=== PATIENT | female | born 1940 | race Caucasian/White ===

== ENCOUNTER → 2016-09-29 | Outpatient (CLI) | payer MEDICARE ==
--- NOTE | 2016-09-30 11:08 | MM ---
Reason for exam: screening (asymptomatic). Last mammogram was performed 1 year ago. History: Patient is postmenopausal and has history of other cancer at age 52. Took estrogen for 8 years. Took progesterone for 8 years. Physical Findings: A clinical breast exam by your physician is recommended on an annual basis and results should be correlated with mammographic findings. MG 3D Screening Mammo W/Cad Bilateral CC and MLO view(s) were taken. Prior study comparison: September 25, 2015, bilateral MG 3d screening mammo w/cad. September 21, 2014, bilateral MG screening mammo w CAD. September 19, 2013, bilateral digital screening mammo w/CAD. The breast tissue is heterogeneously dense. This may lower the sensitivity of mammography. Finding: There are typically benign round calcifications in both breasts. There is no discrete abnormality. ASSESSMENT: Benign, BI-RAD 2 RECOMMENDATION: Routine screening mammogram of both breasts in 1 year.
== END | disposition home or self-care (01) ==
LOC: RADMAMWWP 10:23
PROVIDERS: ATTEND Internal Medicine
DX: Z12.31 Encounter for screening mammogram for malignant neoplasm of breast (principal)
CPT/HCPCS: 77063; G0202

== ENCOUNTER 2017-01-06 06:49 | Emergency (ER) | payer MEDICARE ==
[2017-01-06 06:58] VITALS: TEMP 98.1
[2017-01-06] MEDS ORDERED: KETOROLAC 60 MG/2 ML VIAL IM STA (07:26)
--- NOTE | 2017-01-06 07:52 | XR ---
EXAMINATION TYPE: XR pelvis AP view DATE OF EXAM: 01/06/2017 COMPARISON: NONE HISTORY: Pain TECHNIQUE: Single view FINDINGS: Pelvic ring is intact. There is some sclerosis and spurring at the right acetabulum and fem oral head. Sacroiliac joints appear normal. IMPRESSION: No fracture. 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
--- NOTE | 2017-01-06 08:22 | ED ---
General Adult HPI - General Chief complaint: Extremity Injury, Lower Stated complaint: left side /abd pain Time Seen by Provider: 01/06/17 07:00 Source: patient, RN notes reviewed Mode of arrival: wheelchair Limitations: no limitations - History of Present Illness Initial comments: This is a 76-year-old female presents emergency Department complaining of pain in the right hip area. Patient states she fell a few days ago when she was walking her dog but it wasn't until yesterday that she notices significant pain. Patient states it radiates down into her groin region on the left. Patient states this morning it was so bad she was almost in tears trying to walk. Patient admits that currently now that she's been moving around a little the pain is gone away quite a bit in his difficulty finding where the pain is per patient denies any swelling. Patient denies any sites of bleeding or bruising. Patient denies any recent fever chills or cough. Patient denies abdominal pain. Patient denies any dysuria hematuria urinary frequency. - Related Data Home Medications Medication Instructions Recorded Confirmed Alendronate Sodium [Fosamax] 70 mg PO FR 01/06/17 01/06/17 Ascorbic Acid [Vitamin C] 1,000 mg PO DAILY 01/06/17 01/06/17 Aspirin 81 mg PO DAILY 01/06/17 01/06/17 Calcium Carbonate/Vitamin D3 1 tab PO DAILY 01/06/17 01/06/17 [Calcium 500-Vit D3 600 Tablet] Cholecalciferol [Vitamin D3] 5,000 unit PO DAILY 01/06/17 01/06/17 Flaxseed Oil [[place]-3 Flaxseed Oil] 1,000 mg PO TID 01/06/17 01/06/17 Fluticasone Nasal [place] [Flonase 1 spray EA NOSTRIL BID 01/06/17 01/06/17 Nasal [place]] Glucosamine-Chondr 500-400Mg 1 tab PO DAILY 01/06/17 01/06/17 Loratadine [Claritin] 10 mg PO DAILY 01/06/17 01/06/17 Multivitamins, Thera [Multivitamin 1 tab PO DAILY 01/06/17 01/06/17 (formulary)] Olopatadine HCl [Patanase] 1 spray NASAL BID 01/06/17 01/06/17 Propranolol HCl [Inderal Xl] 80 mg PO DAILY 01/06/17 01/06/17 Ranitidine HCl [Zantac] 150 mg PO HS 01/06/17 01/06/17 methylPREDNISolone [Medrol] 12 mg PO BID 01/06/17 01/06/17 Allergies Allergy/AdvReac Type Severity Reaction Status Date / Time Sulfa (Sulfonamide Allergy ITCHING, Verified 01/06/17 08:11 Antibiotics) SOB, Review of Systems ROS Statement: Those systems with pertinent positive or pertinent negative responses have been documented in the HPI. ROS Other: All systems not noted in ROS Statement are negative. Past Medical History Past Medical History: Cancer, GERD/Reflux Additional Past Medical History / Comment(s): SKIN CA ON NOSE 1998. SINUS PROBLEMS. HEADACHES History of Any Multi-Drug Resistant Organisms: None Reported Past Surgical History: Adenoidectomy, Tonsillectomy, Tubal Ligation Additional Past Surgical History / Comment(s): D & C. COLONOSCOPY Past Anesthesia/Blood Transfusion Reactions: No Reported Reaction Past Psychological History: No Psychological Hx Reported Smoking Status: Never smoker Past Alcohol Use History: Rare Past Drug Use History: None Reported - Past Family History Father Family Medical History: Cancer General Exam - General Exam Comments Initial Comments: GENERAL Patient is well-developed and well-nourished. Patient is in mild distress. EYES Patient's pupils are equal and round. Extraocular motion is intact SKIN Unremarkable NEURO The patient is alert and oriented 3 PYSCH Patient has normal interpersonal interactions. MUSCULOSKELETAL Patient has full range of motion of the left leg and hip area there is no signs of swelling was no signs of bruising orof injury. Limitations: no limitations Course Vital Signs 01/06/17 06:56 Temperature 98.1 F Pulse Rate 59 L Respiratory 16 Rate Blood Pressure 127/69 O2 Sat by Pulse 99 Oximetry Medical Decision Making - Medical Decision Making Pelvic x-ray shows no acute fracture. I spoke with the patient after the x-ray and she indicated that she feels considerably better and then she can't find the pain with movement at this point in time. And states she will return if it returns Disposition Clinical Impression: Muscle strain Disposition: HOME SELF-CARE Condition: Good Instructions: Muscle Strain (ED) Referrals: Sophia Judge MD [Primary Care Provider] - 1-2 days Time of Disposition: 08:22
[2017-01-06 08:26] VITALS: BP 125/65; PULSE 62; RESP 18
== END 2017-01-06 08:26 | disposition home or self-care (01) ==
LOC: EC 06:49
DX: S76.011A Strain of muscle, fascia and tendon of right hip, initial encounter (principal); K21.9 Gastro-esophageal reflux disease without esophagitis; Z85.828 Personal history of other malignant neoplasm of skin; Z79.899 Other long term (current) drug therapy; Z79.52 Long term (current) use of systemic steroids; Z79.82 Long term (current) use of aspirin; Z88.2 Allergy status to sulfonamides; W18.30XA Fall on same level, unspecified, initial encounter; Y93.K1 Activity, walking an animal
CPT/HCPCS: 72170; 99283; 96372; J1885

== ENCOUNTER → 2017-10-12 | Outpatient (CLI) | payer MEDICARE ==
--- NOTE | 2017-10-14 09:11 | MM ---
Reason for exam: screening (asymptomatic). Last mammogram was performed 1 year ago. History: Patient is postmenopausal and has history of other cancer at age 52. Took estrogen for 8 years. Took progesterone for 8 years. Physical Findings: A clinical breast exam by your physician is recommended on an annual basis and results should be correlated with mammographic findings. MG 3D Screening Mammo W/Cad Bilateral CC and MLO view(s) were taken. Prior study comparison: September 29, 2016, bilateral MG 3d screening mammo w/cad. September 25, 2015, bilateral MG 3d screening mammo w/cad. The breast tissue is heterogeneously dense. This may lower the sensitivity of mammography. No significant changes when compared with prior studies. ASSESSMENT: Negative, BI-RAD 1 RECOMMENDATION: Routine screening mammogram of both breasts in 1 year.
== END | disposition home or self-care (01) ==
LOC: RADMAMWWP 09:19
PROVIDERS: ATTEND Internal Medicine
DX: Z12.31 Encounter for screening mammogram for malignant neoplasm of breast (principal)
CPT/HCPCS: 77063; 77067

== ENCOUNTER → 2018-03-26 | Outpatient (CLI) | payer MEDICARE ==
--- NOTE | 2018-03-26 15:52 | US ---
EXAMINATION TYPE: US thyroid st tissue head/neck DATE OF EXAM: 03/26/2018 COMPARISON: NONE CLINICAL HISTORY: E04.1 Thyroid nodule. GLAND SIZE: Right Lobe: 4.4 x 1.4 x 2.0 cm Overall Parenchyma: homogenous Left Lobe: 4.2 x 1.2 x 1.0 cm Overall Parenchyma: homogeneous Isthmus Thickness: 0.3 cm NODULES RIGHT: # of nodules measured on right: 3 largest of multiple 1. 1.5 X 1.2 x 1.0 cm hypoechoic cystic nodule at the mid pole with well-defined margins. This nod ule is taller than wide and shows no intranodular vascularity. 2. 0.8 X 0.5 x 0.3 cm hypoechoic cystic nodule at the mid medial pole with well-defined margins; int errupted peripheral calcification. This nodule is wider than tall and shows no intranodular vascular ity. 3. 1.0 X 0.7 x 0.6 cm hypoechoic mixed nodule at the lower pole with poorly-defined margins. This nodule is wider than tall and shows intranodular vascularity. LEFT: # of nodules measured on left: 1 ISTHMUS: # of nodules measured in the isthmus: 0 Bilateral neck scanned: no evidence of lymphadenopathy. Thyroid gland is overall normal in size with some scattered small nodules. There is a dominant 1.5 cm cystic nodule noted at pole level. IMPRESSION: As above. Correlation with old outside thyroid ultrasound advised to assess for interval change.
== END ==
LOC: RADUSWWP 14:16
PROVIDERS: ATTEND Internal Medicine
DX: E04.1 Nontoxic single thyroid nodule (principal)
CPT/HCPCS: 76536

== ENCOUNTER → 2018-10-13 | Outpatient (CLI) | payer MEDICARE ==
--- NOTE | 2018-10-14 11:35 | MM ---
Reason for exam: screening (asymptomatic). Last mammogram was performed 1 year ago. History: Patient is postmenopausal and has history of other cancer at age 52. Took estrogen for 8 years. Took progesterone for 8 years. Physical Findings: A clinical breast exam by your physician is recommended on an annual basis and results should be correlated with mammographic findings. MG 3D Screening Mammo W/Cad Bilateral CC and MLO view(s) were taken. Prior study comparison: October 12, 2017, bilateral MG 3d screening mammo w/cad. September 29, 2016, bilateral MG 3d screening mammo w/cad. The breast tissue is heterogeneously dense. This may lower the sensitivity of mammography. Finding #1: There is a 10 mm equal density (isodense), obscured oval mass in the right breast. Finding #2: There are typically benign calcifications in both breasts. ASSESSMENT: Incomplete: need additional imaging evaluation, BI-RAD 0 RECOMMENDATION: Special view mammogram of the right breast. If lesion persists on supplemental views, image directed ultrasound is recommended. [facility] will attempt to contact patient to return for supplemental views and ultrasound if indicated.
== END | disposition home or self-care (01) ==
LOC: RADMAMWWP 09:05
PROVIDERS: ATTEND Internal Medicine
DX: Z12.31 Encounter for screening mammogram for malignant neoplasm of breast (principal)
CPT/HCPCS: 77063; 77067

== ENCOUNTER → 2018-10-15 | Outpatient (CLI) | payer MEDICARE ==
--- NOTE | 2018-10-15 14:37 | MM ---
Reason for exam: additional evaluation requested from abnormal screening. Last mammogram was performed less than 1 month ago. History: Patient is postmenopausal and has history of other cancer at age 52. Took hormonal contraceptives for 24 years beginning at age 26. Took estrogen for 8 years. Took progesterone for 8 years. Physical Findings: Nurse did not find any significant physical abnormalities on exam. MG 3D Work Up W/Cad RT Spot compression CC, MLO, and LM view(s) were taken of the right breast. Prior study comparison: October 13, 2018, bilateral MG 3d screening mammo w/cad. October 12, 2017, bilateral MG 3d screening mammo w/cad. There is no discrete abnormality including area of concern. These results were verbally communicated with the patient and result sheet given to the patient on 10/15/18. ASSESSMENT: Negative, BI-RAD 1 RECOMMENDATION: Return to routine screening mammogram schedule for both breasts.
== END ==
LOC: RADMAMWWP 13:45
PROVIDERS: ATTEND Internal Medicine
DX: R92.8 Other abnormal and inconclusive findings on diagnostic imaging of breast (principal)
CPT/HCPCS: 77065; G0279; 77061

== ENCOUNTER → 2019-05-09 | Outpatient (CLI) | payer MEDICARE ==
--- NOTE | 2019-05-09 09:26 | BD ---
EXAMINATION TYPE: Axial Bone Density DATE OF EXAM: 05/09/2019 COMPARISON: 05/01/2014 CLINICAL HISTORY: C 73, Z 90.09 Height: 63.5 IN Weight: 128 LBS RISK FACTORS HISTORY OF: Family History of Osteoporosis: YES MOTHER Active: YES Diet low in dairy products/other sources of calcium: YES Postmenopausal woman: AGE 47 Take estrogen and/or progesterone medications: NOT NOW How long: TOOK CONTROL FOR 15 YEARS + MEDICATIONS: Osteoporosis Medications: NOT NOW Which medication: Fosamax How Long: TOOK FOR 15 YEARS PREVIOUSLY Additional Medications: CALCIUM, VIT D, INNOPRAN, MULTI VIT, VIT C, FLAX SEED OIL, ZINC, BIOTIN, GLUC OSAMINE CHONDROITIN, FLONASE, XARELTO, NEXIUM, CLARITIN, TUMERIC EXAM MEASUREMENTS: Bone mineral densitometry was performed using the [employer] System. Bone mineral density as measured about the Lumbar spine is: ----- L1-L4(G/cm2): 1.085 T Score Values are as follows: ----- L2: 0.0 ----- L3: -1.3 ----- L4: -1.5 ----- L1-L4: -0.8 Bone mineral density has: Increased 2.6% since study of: 05/01/2014 Bone mineral density about the R hip (g/cm2): 0.754 Bone mineral density about the L hip (g/cm2): 0.835 T Score values are as follows: -----R Neck: -2.0 -----L Neck: -1.5 -----R Total: -2.3 -----L Total: -1.4 Bone mineral density has: Decreased -0.1% since study of: 05/01/2014 IMPRESSION: Osteopenia (T Score between -2.5 and -1). There is slightly increased risk of fracture and the patient may be considered for treatment. Re-Screen 2-5 years. NOTE: T-SCORE=SD OF THE YOUNG ADULT MEAN.
[2019-05-09 11:12] LABS: Ionized Calcium 4.9 mg/dL (4.5-5.3)
== END | disposition home or self-care (01) ==
LOC: RADBDWWP 08:45
PROVIDERS: ATTEND Internal Medicine
DX: M85.80 Other specified disorders of bone density and structure, unspecified site (principal); C73 Malignant neoplasm of thyroid gland; Z90.09 Acquired absence of other part of head and neck
CPT/HCPCS: 77080; 82330; 83970; 84443

== ENCOUNTER 2019-06-21 10:07 | Emergency (ER) | payer MEDICARE ==
[2019-06-21 10:19] VITALS: TEMP 98.6
--- NOTE | 2019-06-21 10:35 | ED ---
Fall HPI - General Chief Complaint: Fall Stated Complaint: Fall, L knee pain Time Seen by Provider: 06/21/19 10:20 Source: EMS Mode of arrival: EMS - History of Present Illness Initial Comments: Patient is 79-year-old female presenting to emergency Department with a chief complaint of a fall. Patient brought to the ED via EMS. Patient given fentanyl for pain control in the ride here. She states she was walking her dog when she tripped over a frozen woodpile causing her to fall forward and rolling over to her left side. She states that she Dreger body across the field until she was noticed by her son who called the ambulance. She reports an injury to the left knee and thinks there is no head trauma. She reports limited range of motion with knee flexion in the left knee. At this time she denies any pain at rest. No trauma to the elbows. Patient is on blood thinners. Tetanus up-to-date. - Related Data Home Medications Medication Instructions Recorded Confirmed Alendronate Sodium [Fosamax] 70 mg PO FR 01/06/17 01/06/17 Ascorbic Acid [Vitamin C] 1,000 mg PO DAILY 01/06/17 01/06/17 Aspirin 81 mg PO DAILY 01/06/17 01/06/17 Calcium Carbonate/Vitamin D3 1 tab PO DAILY 01/06/17 01/06/17 [Calcium 500-Vit D3 600 Tablet] Cholecalciferol [Vitamin D3] 5,000 unit PO DAILY 01/06/17 01/06/17 Flaxseed Oil [[place]-3 Flaxseed Oil] 1,000 mg PO TID 01/06/17 01/06/17 Fluticasone Nasal [place] [Flonase 1 spray EA NOSTRIL BID 01/06/17 01/06/17 Nasal [place]] Glucosamine-Chondr 500-400Mg 1 tab PO DAILY 01/06/17 01/06/17 Loratadine [Claritin] 10 mg PO DAILY 01/06/17 01/06/17 Multivitamins, Thera [Multivitamin 1 tab PO DAILY 01/06/17 01/06/17 (formulary)] Olopatadine HCl [Patanase] 1 spray NASAL BID 01/06/17 01/06/17 Propranolol HCl [Inderal Xl] 80 mg PO DAILY 01/06/17 01/06/17 Ranitidine HCl [Zantac] 150 mg PO HS 01/06/17 01/06/17 methylPREDNISolone [Medrol] 12 mg PO BID 01/06/17 01/06/17 Allergies Allergy/AdvReac Type Severity Reaction Status Date / Time Sulfa (Sulfonamide Allergy ITCHING, Verified 01/06/17 08:11 Antibiotics) SOB, Review of Systems ROS Statement: Those systems with pertinent positive or pertinent negative responses have been documented in the HPI. ROS Other: All systems not noted in ROS Statement are negative. Past Medical History Past Medical History: Atrial Fibrillation, Cancer, GERD/Reflux Additional Past Medical History / Comment(s): SKIN CA ON NOSE 1998. SINUS PROBLEMS. HEADACHES History of Any Multi-Drug Resistant Organisms: None Reported Past Surgical History: Adenoidectomy, Tonsillectomy, Tubal Ligation Additional Past Surgical History / Comment(s): D & C. COLONOSCOPY Past Anesthesia/Blood Transfusion Reactions: No Reported Reaction Past Psychological History: No Psychological Hx Reported Smoking Status: Never smoker Past Alcohol Use History: Rare Past Drug Use History: None Reported - Past Family History Father Family Medical History: Cancer General Exam Limitations: physical limitation General appearance: alert, in no apparent distress Head exam: Present: atraumatic, normocephalic, normal inspection. Absent: other (Negative Augustine sign, negative hemotympanum, negative raccoon eyes.) Eye exam: Present: normal appearance, PERRL, EOMI Pupils: Present: normal accommodation ENT exam: Present: normal exam, normal oropharynx, mucous membranes moist, TM's normal bilaterally, normal external ear exam Neck exam: Present: normal inspection, full ROM Respiratory exam: Present: normal lung sounds bilaterally Cardiovascular Exam: Present: regular rate, normal rhythm, normal heart sounds GI/Abdominal exam: Present: soft, tenderness. Absent: distended Extremities exam: Present: tenderness (Tenderness along the medial aspect of the left knee. Negative anterior drawer.), normal capillary refill, joint swelling (Left knee), other (+2 dorsalis pedis and posterior tibialis bilaterally. Patient neurovascularly intact.). Absent: normal inspection (Abrasion the left knee. Mild swelling along the medial aspect of the knee.), full ROM (Limited range of motion her left knee due to pain), pedal edema, calf tenderness Back exam: Present: normal inspection, full ROM Neurological exam: Present: alert, oriented X3 Psychiatric exam: Present: normal affect, normal mood Skin exam: Present: warm, dry, intact, normal color Course Vital Signs 06/21/19 10:15 Temperature 98.6 F Pulse Rate 56 L Respiratory 19 Rate Blood Pressure 133/73 O2 Sat by Pulse 97 Oximetry Medical Decision Making - Medical Decision Making Patient is 79-year-old female presenting to emergency Department with a chief complaint of a fall. On exam trauma noted. Patient on blood thinners. CT brain performed and is negative. Patient has an abrasion to left knee with some mild swelling. Pain along the medial aspect of the knee. Minor bony deformity noted Along the patella. X-ray shows a patellar fracture with a 3.3 cm diastasis. Possible patella tendon rupture. Patient was given fentanyl in the ambulance. On initial evaluation patient declined analgesia. Knee immobilizer applied . Abrasion cleaned and dressed accordingly. patient given Tylenol 3 starter pack advised to follow-up with orthopedics. Should return parameters were thoroughly discussed with patient is understanding and agreeable. Case discussed with physician. Disposition Clinical Impression: Patellar sleeve fracture of left knee, Fall Disposition: HOME SELF-CARE Condition: Stable Instructions (If sedation given, give patient instructions): Patellar Fracture (ED), Patellar Fracture Repair (DC) Additional Instructions: Please follow up with orthopedics. Please take medication as directed. Alterna te between Tylenol and ibuprofen for pain control. Please return to emergency department if symptoms worsen. Is patient prescribed a controlled substance at d/c from ED?: No Referrals: Sophia Judge MD [Primary Care Provider] - 1-2 days Wilfredo Agee MD [STAFF PHYSICIAN] - 1-2 days Time of Disposition: 11:31
--- NOTE | 2019-06-21 11:01 | CT ---
EXAMINATION TYPE: CT brain cspine wo con DATE OF EXAM: 06/21/2019 COMPARISON: NONE HISTORY: Fall, with headache and neck pain. CT DLP: 1213.4 mGycm. Automated Exposure Control for Dose Reduction was Utilized. TECHNIQUE: CT scan of the head and cervical spine are performed without contrast. FINDINGS: There is no acute intracranial hemorrhage or midline shift identified. Diffuse ventricula r and sulcal prominence. Flores-white matter differentiation from well-maintained. The globes are inta ct and the visualized sinuses are clear. Calvarium is intact. Cervical spine is visualized in its entirety from C1 through upper thoracic levels and demonstrates s atisfactory alignment without evidence of acute fracture or dislocation. Prevertebral soft tissue ap pears within normal limits. The C1-C2 articulation is within normal limits on the coronal images. V ertebral body heights are maintained. [id number] multilevel disc space narrowing and spurring m ost prominent at C6-C7 level is identified. Posterior spurring effacing the C6 and C6-C7 levels. Axia l images show uncovertebral facet degenerative changes causing bilateral neural foraminal narrowing C 3-C4 through C6-C7 levels. Small or atrophic right thyroid lobe noted. Mild/moderate biapical pleural /parenchymal scarring is seen extending posteriorly IMPRESSION: 1. There is no acute fracture or dislocation evident in the cervical spine. 2. No acute intracranial hemorrhage or midline shift is seen.
--- NOTE | 2019-06-21 11:05 | XR ---
EXAMINATION TYPE: XR knee 4V LT DATE OF EXAM: 06/21/2019 CLINICAL HISTORY: Left knee pain after trauma and abrasion TECHNIQUE: Three views of the left knee are obtained. Patellar view was also obtained. COMPARISON: None. FINDINGS: There is a diastatic acute transversely oriented patellar fracture with diastases of 3.3 cm . There is thickening of the patellar tendon with lucency distally concerning for patellar tendon ret raction. Associated joint effusion is seen. There is some comminution on the patellar sunrise view. N o patellar dislocation. Remainder of the left knee appears intact. Diffuse osseous demineralization. IMPRESSION: Acute, mildly comminuted, diastatic primarily transversely oriented left patellar fractur e with 3.3 cm diastases. Findings are also suspicious for patellar tendon rupture at the insertion wi th retraction.
[2019-06-21] MEDS ORDERED: ACET/COD 300 MG/30 MG STARTER PACK 6 TAB BTL PO STA (11:26)
[2019-06-21 11:33] VITALS: BP 125/67; PULSE 65; RESP 20
== END 2019-06-21 11:56 | disposition home or self-care (01) ==
LOC: EC 10:07
DX: S82.002A Unspecified fracture of left patella, initial encounter for closed fracture (principal); I48.91 Unspecified atrial fibrillation; K21.9 Gastro-esophageal reflux disease without esophagitis; Z85.828 Personal history of other malignant neoplasm of skin; Z79.82 Long term (current) use of aspirin; Z79.52 Long term (current) use of systemic steroids; Z79.899 Other long term (current) drug therapy; Z88.2 Allergy status to sulfonamides; W18.09XA Striking against other object with subsequent fall, initial encounter; Y93.K1 Activity, walking an animal
CPT/HCPCS: 73564; 72125; 70450; 99284; L1830 ×2

== ENCOUNTER 2019-07-12 09:24 | Observation (INO) | payer MEDICARE ==
[2019-07-07 10:09] VITALS: BMI 21.6
[~2019-07-12 09:24] MED LIST: LIDOCAINE 1% 20 ML VIAL (10MG/ML) FOR IV START INTRADERMA PRN; MIDAZOLAM 2 MG/2 ML VIAL IV PRN; ONDANSETRON 4 MG/2 ML VIAL IVP ONE; SCOPOLAMINE 1.5MG/72HR PATCH TRANSDERM ONE; TRANEXAMIC ACID 1,000 MG in SODIUM CHLORIDE 0.9% 100 ML IVPB ONE
[2019-07-12] MEDS: LACTATED RINGERS 1,000 ML IV SCH ×4 (10:42→19:32)
[2019-07-12] MEDS: ACETAMINOPHEN TAB 500 MG TAB PO ONE ×2 (10:44→15:48)
[2019-07-12] MEDS: DEXAMETHASONE SOD PHOSPHATE 10 MG/ML 1 ML VIAL IV ONE ×2 (10:45→15:49)
[2019-07-12] MEDS: ONDANSETRON 4 MG/2 ML VIAL IVP ONE ×2 (10:45→15:48)
[2019-07-12] MEDS ORDERED: fentaNYL (PF) 50 MCG/ML 2 ML AMP ONE (11:37)
[2019-07-12] MEDS ORDERED: MIDAZOLAM 2 MG/2 ML VIAL ONE (11:37)
[2019-07-12] MEDS ORDERED: LIDOCAINE 1% INJ 10MG/ML (20 ML MDV) ONE (11:37)
[2019-07-12] MEDS ORDERED: ePHEDrine SULFATE/0.9% NACL/PF 50 MG/5 ML SYRINGE IV ONE (11:37)
[2019-07-12] MEDS ORDERED: PROPOFOL 10 MG/ML 20 ML VIAL IV ONE (11:37)
[2019-07-12] MEDS ORDERED: ROPIVACAINE 5 MG/ML 30 ML VIAL ONE (11:37)
--- NOTE | 2019-07-12 12:24 | P.ANPRN ---
Procedure Note - Anesthesia - Nerve Block Performed Left Adductor Canal Single Time Out Performed: Yes ([id number]) Date of Procedure: 07/12/19 Procedure Start Time: 10:47 Procedure Stop Time: 10:53 Location of Patient: PreOp Indication: Acute Post-Operative Pain, Requested by Surgeon Specifically requested for management of pain by DrAustin: Wilfredo Agee Sedation Type: Sedate with meaningful contact maintained Preparation: Sterile Prep Position: Supine Catheter: None Needle Types: Pajunk Needle Gauge: 20 Ultrasound used to visualize needle placement: Yes Ultrasound used to observe medication spread: Yes Injectate: 0.5% Ropivacaine (see comment for volume) (15cc) Blood Aspirated: No Pain Paresthesia on Injection Noted: No Resistance on Injection: Normal Image Stored and Saved: Yes Events: Uneventful and Well Tolerated
[2019-07-12] MEDS ORDERED: HYDROcodone/APAP 5-325MG 1 EACH TAB PO PRN (13:09)
[2019-07-12] MEDS ORDERED: NA PHOS,M-B/NA PHOS,DI-BA 133 ML ENEMA RECTAL PRN (13:09)
[2019-07-12] MEDS ORDERED: HYDROmorphone 0.5 MG/0.5 ML SYRINGE IVP PRN ×2 (13:09)
[2019-07-12] MEDS ORDERED: TEMAZEPAM 15 MG CAP PO PRN (13:09)
[2019-07-12] MEDS ORDERED: MAGNESIUM HYDROXIDE 2,400 MG/10 ML CUP PO PRN (13:09)
[2019-07-12] MEDS ORDERED: NALOXONE 0.4 MG/ML 1 ML VIAL IV PRN (13:09)
[2019-07-12] MEDS ORDERED: BISACODYL 10 MG SUPP RECTAL PRN (13:09)
[2019-07-12] MEDS ORDERED: traMADol 50 MG TAB PO PRN (13:09)
[2019-07-12] MEDS ORDERED: ONDANSETRON 4 MG/2 ML VIAL IVP PRN (13:09)
[2019-07-12] MEDS ORDERED: ACETAMINOPHEN TAB 325 MG TAB PO PRN (13:09)
[2019-07-12] MEDS ORDERED: DIAZEPAM 5 MG TAB PO PRN (13:09)
--- NOTE | 2019-07-12 13:13 | FL ---
Fluoroscopy INDICATION: Pain FINDINGS: Fluoroscopy time: 4 seconds. Images obtained: 2. IMPRESSIONS: 1. Documentation of fluoroscopy.
[2019-07-12] MEDS: HYDROmorphone 0.5 MG/0.5 ML SYRINGE IVP PRN ×2 (14:39→14:48)
[2019-07-12] MEDS ORDERED: LACTATED RINGERS 1,000 ML IV ONE (14:50)
[2019-07-12] MEDS: HYDROcodone/APAP 10-325MG 1 EACH TAB PO PRN (19:33)
[2019-07-12] MEDS ORDERED: [UNRECOGNIZED DRUG - OTHER] NASAL SCH (21:00)
[2019-07-12] MEDS ORDERED: GLUCOSAMINE CHONDR PO SCH (21:00)
[2019-07-12] MEDS: SENNOSIDES-DOCUSATE SODIUM 1 EACH TAB PO SCH (22:36)
--- NOTE | 2019-07-12 23:45 | CONS ---
CONSULTATION DATE OF SERVICE: 07/12/2019 REASON FOR CONSULTATION: Advice regarding atrial fibrillation and other multiple medical issues, requested by Dr. Agee. HISTORY OF PRESENT ILLNESS: This 79 -year-old woman with a past medical history of atrial fibrillation, history of GERD, history of hearing defects, history of adenoidectomy, tonsillectomy, being followed by Dr. Judge in the outpatient setting, underwent ORIF of the left patellar fracture by Dr. Agee. There is no history of chest pain. No history of palpitations, headache, loss of consciousness or seizures. No nausea, vomiting, diarrhea, fever, rigors, chills at this time. PAST MEDICAL HISTORY: Atrial ablation, GERD, hard of hearing, adenoidectomy, tonsillectomy. MEDICATIONS: Home medications are: 1. Xarelto 1 tablet p.o. daily. 2. Turmeric. 3. Nasal spray. 4. Loratadine 10 mg daily. 5. Inderal 80 mg p.o. daily. 6. Nexium 1 tab q.a.m. 7. Multivitamins one p.o. daily. 8. Glucosamine 1 tablet p.o. b.i.d. 9. Vitamin D3 5000 daily. 10.Calcium with vitamin D 1 p.o. daily. 11.Vitamin C 1000 mg p.o. daily. 12.Fosamax 70 mg p.o. Thursday. ALLERGIES: SULFA. FAMILY HISTORY: History of cancer in the family. SOCIAL HISTORY: No history of smoking. No history of alcohol. REVIEW OF SYSTEMS: ENT no diminished vision. No diminished hearing. CARDIOVASCULAR: No angina or palpitations, otherwise as mentioned earlier. RESPIRATION: No cough. GI no nausea or vomiting. no dysuria or hematuria. CENTRAL NERVOUS SYSTEM: No numbness or weakness. ALLERGY/IMMUNOLOGY: No asthma or hayfever. MUSCULOSKELETAL as mentioned earlier. HEMATOLOGY/ONCOLOGY: No history of anemia. ENDOCRINE no history of diabetes or hypothyroidism. CONSTITUTIONAL: As mentioned earlier. DERMATOLOGY: Negative. RHEUMATOLOGY: Negative. PSYCHIATRY: As mentioned earlier. PHYSICAL EXAMINATION: The patient is alert and oriented times three. Pulse 77, blood pressure 130/71. Respiration 15, temperature 97.5, pulse ox 98% on 2 L. HEENT: Conjunctivae normal. Oral mucosa moist. Neck is no jugular venous distention. No carotid bruit. No lymph node enlargement. CARDIOVASCULAR system: S1, S2. No S3, no S4. RESPIRATORY: Breath sounds diminished in the bases. A few rhonchi. No crackles. ABDOMEN: Soft, nontender. No mass palpable. LEGS: Status post surgery. NERVOUS SYSTEM: Higher functions as mentioned earlier. Moves all 4 limbs. No focal motor or sensory deficits. LYMPHATICS: No lymph nodes palpable in the neck, axillae or groin. SKIN: No ulcers. No rashes. No bleeding. JOINTS: No active deforming arthropathy. LABS: At this time shows the preop labs: Hematology, CBC within normal limits. Otherwise CO2 35.4, BUN and creatinine ratio slightly elevated. UA unremarkable. ASSESSMENT: 1. Status post ORIF of the left knee patellar fracture. 2. Atrial fibrillation, chronic history. 3. Gastroesophageal reflux disease. 4. Hearing defects. 5. History of headaches. 6. Adenoidectomy. 7. History of tonsillectomy. RECOMMENDATIONS AND DISCUSSION: In this 79-year-old woman who presented after surgery, at this time, I recommend to continue current medications, management and symptomatic treatment. Otherwise DVT prophylaxis, resume the home medications. Other than that, I would recommend close followup with Dr. Judge after discharge. The patient was taking Xarelto, Xarelto may be initiated when okay with Orthopedic surgery. Further recommendations to follow. Otherwise, continue to monitor. Thank you Dr. Agee for letting us participate in the care of this patient. MMMARCUSL / SNOW: [id number] /
[2019-07-13] MEDS: LACTATED RINGERS 1,000 ML IV SCH ×4 (06:41→20:05)
[2019-07-13] MEDS: HYDROcodone/APAP 10-325MG 1 EACH TAB PO PRN ×2 (06:55→12:05)
[2019-07-13] MEDS: LORATADINE 10 MG TAB PO SCH (06:55)
[2019-07-13] MEDS: MULTIVITAMINS, THERA 1 EACH TAB PO SCH (06:55)
[2019-07-13] MEDS: CALCIUM CARB-VIT D 500MG-200UN 1 EACH TAB PO SCH (06:55)
[2019-07-13] MEDS: PROPRANOLOL LA 80 MG CAP.SA.24H PO SCH (06:56)
[2019-07-13] MEDS: CHOLECALCIFEROL 1,000 UNIT TAB PO SCH (06:56)
[2019-07-13 08:33] LABS: Basophils % (A) 0 %; Eosinophils % (A) 0 %; HCT 30.9 % (34.0-46.0); Lymphocytes # (A) 1.3 k/uL (1.0-4.8); Lymphocytes % (A) 20 %; MCH 31.5 pg (25.0-35.0); MCHC 32.5 g/dL (31.0-37.0); MCV 97.1 fL (80.0-100.0); Mean Platelet Volume 8.2; Monocytes # (A) 0.6 k/uL (0-1.0); Monocytes % (A) 9 %; Neutrophils # (A) 4.5 k/uL (1.3-7.7); Neutrophils % (A) 69 %; Platelet Count 287 k/uL (150-450); RBC 3.18 m/uL (3.80-5.40); RDW 12.9 % (11.5-15.5); WBC 6.6 k/uL (3.8-10.6)
[2019-07-13] MEDS: HYDROmorphone 0.5 MG/0.5 ML SYRINGE IVP PRN ×4 (08:44→22:26)
[2019-07-13] MEDS ORDERED: MULTIVITAMINS, THERA 1 EACH TAB PO SCH (09:00)
--- NOTE | 2019-07-13 09:32 | P.PN ---
Subjective Progress Note Date: 07/13/19 Principal diagnosis: Left patella fracture Patient is seen at bedside this morning. She is postop day #1 from ORIF of left patella fracture. She has pain at the surgical site as expected but denies any new complaints. She denies numbness, tingling or calf pain. Review of systems is negative for fever, chills, chest pain, shortness of breath or other Objective - Vital Signs Vital signs: Vital Signs Temp 98.5 F 07/13/19 07:00 Pulse 66 07/13/19 07:00 Resp 16 07/13/19 07:00 BP 107/58 07/13/19 07:00 Pulse Ox 96 07/13/19 07:00 Intake & Output 07/12/19 07/13/19 07/13/19 18:59 06:59 18:59 Intake Total 1050 150 Output Total 25 Balance 1025 150 Weight 57.5 kg Intake: IV 1050 Oral 150 Output: Estimated Blood Loss 25 Other: # Voids 1 - Exam Inspection reveals a benign surgical wound. There is no active bleeding or drainage through bandage. She has a knee brace locked in extension. Neuro vascular status is intact throughout the lower extremity with motor and sensation fully intact. Calf is soft and nontender. 2+ dorsalis pedis pulse and less than 2 second cap refill is present. - Constitutional General appearance: Present: no acute distress - Labs CBC & Chem 7: 07/13/19 07:57 Labs: Abnormal Lab Results - Last 24 Hours (Table) 07/13/19 Range/Units 07:57 RBC 3.18 L (3.80-5.40) m/uL Hgb 10.0 L (11.4-16.0) gm/dL Hct 30.9 L (34.0-46.0) % Assessment and Plan (1) Patellar sleeve fracture of left knee Narrative/Plan: She will continue with routine postop orthopedic protocol including pain man agement, wound care, PT, DVT prophylaxis and medical management. Expect that he will transfer to home tomorrow. Current Visit: Yes Status: Acute Code(s): S82.092A - OTH FRACTURE OF LEFT PATELLA, INIT FOR CLOS FX SNOMED Code(s): 75642264 Time with Patient: Less than 30
--- NOTE | 2019-07-13 15:31 | PN ---
PROGRESS NOTE DATE OF SERVICE: 07/13/2019 This is a 79-year-old woman who was admitted after ORIF of the left knee, patellar fracture is being closely monitored. The patient apparently had a contact with the patient's granddaughter who is 14 years old with who had whooping cough, diagnosis of whooping cough recently, but currently the patient does not have any chest pain, palpitation, cough, sputum, rash, fever at this time or joint pains at this time. PHYSICAL EXAM: Alert and oriented x3. Pulse 66, blood pressure 107/50, respirations 16, temperature 98.4, pulse ox 98% on room air skin: HEENT: Conjunctivae normal. NECK: No jugular venous distension. CARDIOVASCULAR SYSTEM: S1, S2, muffled. RESPIRATION: Breath sounds diminished at the bases, ABDOMEN: Soft, nontender. LEGS: No edema, no swelling. NERVOUS SYSTEM: No focal deficits. LABS: WBC is 6.6, hemoglobin is 10. ASSESSMENT: 1. Status post ORIF of the left knee, patellar fracture. 2. Atrial fibrillation, chronic history. 3. Gastroesophageal reflux disease. 4. Anemia, normocytic anemia of chronic disease. 5. Hearing defects. 6. History of headaches. 7. Adenoidectomy. 8. History of tonsillectomy. 9. History of recent contact with whooping cough. RECOMMENDATION: Recommend to continue with the current management and symptomatic treatment as mentioned. The patient is symptomatic. Continue with Xarelto as at home. Otherwise, continue the DVT prophylaxis, proton pump inhibitors. Further recommendations to follow including pain management per Orthopedic Surgery. MMODL / IJN: [id number] /
[2019-07-13] MEDS: RIVAROXABAN 20 MG TAB PO SCH (17:45)
[2019-07-13] MEDS: SENNOSIDES-DOCUSATE SODIUM 1 EACH TAB PO SCH (20:04)
--- NOTE | 2019-07-13 23:34 | OP ---
OPERATIVE REPORT PROCEDURE: 07/12/2019. SURGEON: Wilfredo Agee M.D. INPATIENT NURSING AIDE: Cabrera DUCKWORTH. PREOPERATIVE DIAGNOSIS: Left displaced patella fracture. POSTOP DIAGNOSIS: Left displaced patella fracture. OPERATION PERFORMED: Open reduction internal fixation left patella fracture. ANESTHESIA: Spinal with sedation. ESTIMATED BLOOD LOSS: Was less than 25 mL. TOURNIQUET: Tourniquet time was 32 minutes at 250 mmHg. COMPLICATIONS: None apparent. DRAINS: None. DISPOSITION: Postanesthesia care unit. INDICATIONS: Jennifer is a 79-year-old female who fell onto her left knee. Workup including x-rays revealed a significantly displaced transverse patella fracture. She did come to see me in the office. She did have a fairly significant abrasion on the anterior aspect of the knee. It was a fairly deep abrasion. I did let this heal for a couple weeks before proceeding with the procedure. This is healed uneventfully. There was no evidence of infection. She has decided to go forward with open reduction, internal fixation of her left patella fracture. The risks of procedure were discussed with her and her family in detail. These risks include, but are not limited to risk of infection, nerve damage, bleeding, pain, and a small risk of deep vein thrombosis which could lead to fatal pulmonary embolism. Also, risk of failure of the fracture to heal and postoperative stiffness in the knee. All of her questions were answered to her satisfaction. The patient understands the risks. Appropriate informed consent was obtained. DESCRIPTION OF PROCEDURE: Patient identified in preop holding area. Surgical site was marked by both the patient and myself. She was given 2 g of Ancef IV for prophylactic purposes. She was then transported to the operative suite. She was placed supine on the operative table. A spinal anesthetic was then administered and dosed per the anesthesia without apparent complication. A tourniquet was then placed high on the left upper thigh well-padded in preparation for surgery. The patient's left lower extremity than prepped draped usual sterile fashion. Standard surgical pause undertaken to ensure that we were operating on the correct site and appropriate preoperative antibiotics were given. All staff in the room were in agreement. We proceeded. We did curve the incision medially slightly to avoid the area of her previous abrasion. Incision approximate 10-12 cm incision over the anterior aspect of the knee was then made. Dissection carried down sharply to the to the fascia layer. Minimal flaps were then made. The fracture was readily evident. She did have a retinacular tear both medially and laterally. I then utilized a curette to remove fibrous tissue from the exposed bone on both the proximal and distal aspect of the fracture. This provided nice bleeding surface for the fixation. The fracture was reduced with a reduction clamp. I then placed 2 threaded guide pins from superior to inferior in the central aspect of the patella. Placement of these guidewires was checked with fluoroscopic imaging. I then measured for length. We proceeded to utilize Synthes 4.5 mm partially-threaded cannulated screws for fixation. She had fairly good bone quality. The screw was placed both medially and laterally over the threaded guide pins. This allowed for excellent compression of the fracture. Fluoroscopic imaging was again done to assess the reduction and it was anatomic. The screws were also of appropriate length. I then used a Plum.io suture passer to run Arthrex fiber tape suture as a tension band type construct. The suture was tied very tightly and the knot was brought as superior as possible so as not to cause any undue irritation. At this point time, no further work was deemed necessary with the patella. We proceeded with repair of the retinaculum. Both the medial and lateral retinaculum were repaired with #1 Vicryl interrupted suture. The wound in the knee where it was thoroughly irrigated with sterile saline solution with antibiotic added. The subcutaneous tissue was then closed with 2-0 Vicryl interrupted suture. This skin was closed with a running 3-0 Quill suture. Dermabond was applied to the incision. Sterile compressive dressing was then applied. The tourniquet was deflated prior to closure. The total tourniquet time for the procedure was 32 minutes at 250 mmHg. Sterile compressive dressing was applied. The patient is placed into a hinged knee brace, locked in full extension. All sponge and needle counts were deemed correct prior to closure. The patient tolerated procedure without apparent complication. She was transferred recovery room in stable condition. MMODL / IJN: [id number] /
[2019-07-14] MEDS: HYDROcodone/APAP 10-325MG 1 EACH TAB PO PRN (05:40)
[2019-07-14] MEDS: PANTOPRAZOLE 40 MG TABLET PO SCH (07:35)
[2019-07-14] MEDS: CALCIUM CARB-VIT D 500MG-200UN 1 EACH TAB PO SCH (07:35)
[2019-07-14] MEDS: LORATADINE 10 MG TAB PO SCH (07:35)
[2019-07-14] MEDS: CHOLECALCIFEROL 1,000 UNIT TAB PO SCH (07:35)
[2019-07-14] MEDS: MULTIVITAMINS, THERA 1 EACH TAB PO SCH (07:35)
[2019-07-14] MEDS: PROPRANOLOL LA 80 MG CAP.SA.24H PO SCH (07:35)
--- NOTE | 2019-07-14 14:08 | P.PN ---
Subjective Progress Note Date: 07/14/19 Principal diagnosis: Left patella fracture Patient is seen at bedside this morning. She is postop day #2 from ORIF of left patella fracture. She has pain at the surgical site as expected but denies any new complaints. She denies numbness, tingling or calf pain. Review of systems is negative for fever, chills, chest pain, shortness of breath or other Objective - Vital Signs Vital signs: Vital Signs Temp 98.8 F 07/14/19 07:00 Pulse 74 07/14/19 07:00 Resp 16 07/14/19 07:00 BP 141/68 07/14/19 07:00 Pulse Ox 93 L 07/14/19 07:00 Intake & Output 07/13/19 07/14/19 07/14/19 18:59 06:59 18:59 Intake Total 375 360 625 Output Total 750 Balance 375 -390 625 Intake: Intake, IV Titration 525 Amount Lactated Ringers 1,000 ml 525 @ 75 mls/hr IV .[id number] ERIK Rx#:[id number] Oral 375 360 100 Output: Urine 750 Other: Voiding Method Toilet Toilet # Voids 3 4 - Exam Inspection reveals a benign surgical wound. There is a small area of little/benign bleeding after bandage removed. Neurovascular status is intact throughout the lower extremity with motor and sensation fully intact. Calf is soft and nontender. 2+ dorsalis pedis pulse and less than 2 second cap refill is present. - Constitutional General appearance: Present: no acute distress - Labs CBC & Chem 7: 07/13/19 07:57 Assessment and Plan (1) Patellar sleeve fracture of left knee Narrative/Plan: She will continue with routine postop orthopedic protocol including pain man agement, wound care, PT, DVT prophylaxis and medical management. Maintain knee brace locked in extension when ambulating. Expect that she will transfer to home tomorrow. Current Visit: Yes Status: Acute Code(s): S82.092A - OTH FRACTURE OF LEFT PATELLA, INIT FOR CLOS FX SNOMED Code(s): 55937220 Time with Patient: Less than 30
[2019-07-14] MEDS: RIVAROXABAN 20 MG TAB PO SCH (17:03)
[2019-07-14] MEDS: LACTATED RINGERS 1,000 ML IV SCH ×2 (17:05→20:56)
--- NOTE | 2019-07-14 19:26 | PN ---
PROGRESS NOTE DATE OF SERVICE: 07/14/2019 This 79-year-old woman who was admitted after ORIF of the left knee and patellar fracture is being closely monitored. The patient recently had contracted whooping cough and is supposed to be on antibiotics per public health recommendations. The son is going to get the antibiotics prescribed by Dr. Judge for the same purpose at this time. No chest pain. No palpitations. No fever. EXAM: Alert and oriented x3. Pulse 72, blood pressure 134/64, respiration 16, temperature 99.2, pulse ox 94% on room air. HEENT: Conjunctivae normal. Oral mucosa moist. NECK: No jugular venous distention. No lymph node enlargement. CARDIOVASCULAR: S1, S2. RESPIRATORY: Diminished breath sounds at the bases. Bilateral scattered rhonchi and crackles. ABDOMEN: Soft, nontender. LEGS: No edema, no swelling. NERVOUS SYSTEM: No focal deficits. LABS: WBC 6.2, hemoglobin is 10. ASSESSMENT: 1. Status post open reduction internal fixation of the left knee patellar fracture. 2. Atrial fibrillation, chronic history. 3. Gastroesophageal reflux disease. 4. Anemia, normocytic anemia of chronic disease. 5. Hearing defects. 6. History of headaches. 7. History of adenoidectomy. 8. History of tonsillectomy. 9. History of recent contracted whooping cough. RECOMMENDATIONS AND DISCUSSION: I recommend to continue current medication, continue symptomatic treatment, pain management, DVT prophylaxis, antibiotics for whooping cough prevention per recommended by Dr. Judge. Further recommendations to follow. MMODL / IJN: [id number] /
[2019-07-14] MEDS: SENNOSIDES-DOCUSATE SODIUM 1 EACH TAB PO SCH (20:56)
[2019-07-15] MEDS: CALCIUM CARB-VIT D 500MG-200UN 1 EACH TAB PO SCH (08:02)
[2019-07-15] MEDS: PANTOPRAZOLE 40 MG TABLET PO SCH (08:02)
[2019-07-15] MEDS: CHOLECALCIFEROL 1,000 UNIT TAB PO SCH (08:02)
[2019-07-15] MEDS: LORATADINE 10 MG TAB PO SCH (08:03)
[2019-07-15] MEDS: AZITHROMYCIN 250 MG PO SCH (08:03)
[2019-07-15] MEDS: PROPRANOLOL LA 80 MG CAP.SA.24H PO SCH (08:03)
[2019-07-15 08:04] LABS: Basophils % (A) 1 %; Eosinophils # (A) 0.1 k/uL (0-0.7); Eosinophils % (A) 3 %; HCT 34.2 % (34.0-46.0); HGB 11.2 gm/dL (11.4-16.0); Lymphocytes # (A) 1.3 k/uL (1.0-4.8); Lymphocytes % (A) 28 %; MCH 31.3 pg (25.0-35.0); MCHC 32.7 g/dL (31.0-37.0); MCV 95.6 fL (80.0-100.0); Mean Platelet Volume 8.3; Monocytes # (A) 0.4 k/uL (0-1.0); Monocytes % (A) 8 %; Neutrophils # (A) 2.8 k/uL (1.3-7.7); Neutrophils % (A) 59 %; Platelet Count 317 k/uL (150-450); RBC 3.58 m/uL (3.80-5.40); RDW 12.6 % (11.5-15.5); WBC 4.7 k/uL (3.8-10.6)
[2019-07-15] MEDS: HYDROcodone/APAP 10-325MG 1 EACH TAB PO PRN (08:04)
[2019-07-15] MEDS: LACTATED RINGERS 1,000 ML IV SCH (08:06)
[2019-07-15] MEDS ORDERED: AZITHROMYCIN 250 MG TAB PO SCH (09:00)
--- NOTE | 2019-07-15 10:12 | P.PN ---
Subjective Progress Note Date: 07/15/19 Principal diagnosis: Status post ORIF left patella fracture This is a 79 year-old female post left patella ORIF. This is post-op day 3. The patient was evaluated at the bedside today. The patient denies nausea, vomiting, abdominal pain, shortness of breath, and chest pain this morning. She states her pain is controlled at this time. The patient has been up with physical therapy. Objective - Vital Signs Vital signs: Vital Signs Temp 98.3 F 07/15/19 06:33 Pulse 75 07/15/19 06:33 Resp 12 07/15/19 06:33 BP 145/75 07/15/19 06:33 Pulse Ox 97 07/15/19 06:33 Intake & Output 07/14/19 07/15/19 07/15/19 18:59 06:59 18:59 Intake Total 750 Output Total 750 Balance 750 -750 Intake: Intake, IV Titration 525 Amount Lactated Ringers 1,000 ml 525 @ 75 mls/hr IV .[id number] ERIK Rx#:[id number] Oral 225 Output: Urine 750 Other: Voiding Method Toilet Toilet Toilet # Voids 1 - Exam The patient does not appear in acute distress. Alert and orientated x3. Dressing is clean dry and intact. Incision appears fine with no erythema or active drainage. There is a small area of scabbing on the distal third of the incision. No active bleeding at this time. Calf is soft and nontender. Good foot and ankle motion without difficulty. Sensation and circulatory status is intact. Hinged knee brace in place locked in extension. - Labs CBC & Chem 7: 07/15/19 06:55 Labs: Abnormal Lab Results - Last 24 Hours (Table) 07/15/19 Range/Units 06:55 RBC 3.58 L (3.80-5.40) m/uL Hgb 11.2 L (11.4-16.0) gm/dL Assessment and Plan (1) Patellar sleeve fracture of left knee Current Visit: Yes Status: Acute Code(s): S82.092A - OTH FRACTURE OF LEFT PATELLA, INIT FOR CLOS FX SNOMED Code(s): 10342294 (2) Fall Current Visit: No Status: Acute Code(s): W19.XXXA - UNSPECIFIED FALL, INITIAL ENCOUNTER SNOMED Code(s): 0863889 Plan: 1. Continue pain control 2. Anticoagulation with Xarelto 3. Continue physical therapy and ambulation, weightbearing as tolerated in knee brace 4. Anticipate discharge home with homecare either today or tomorrow
[2019-07-15] MEDS: MULTIVITAMINS, THERA 1 EACH TAB PO SCH (12:09)
[2019-07-15] MEDS: RIVAROXABAN 20 MG TAB PO SCH (16:59)
--- NOTE | 2019-07-15 17:57 | P.PN ---
Subjective Progress Note Date: 07/15/19 Status post ORIF left patella fracture This is a 79 year-old female post left patella ORIF. This is post-op day 3. The patient was evaluated at the bedside today. The patient denies nausea, vomiting, abdominal pain, shortness of breath, and chest pain this morning. She states her pain is controlled at this time. The patient has been up with physical therapy. Objective - Vital Signs Vital signs: Vital Signs Temp 98.3 F 07/15/19 06:33 Pulse 75 07/15/19 06:33 Resp 12 07/15/19 06:33 BP 145/75 07/15/19 06:33 Pulse Ox 97 07/15/19 06:33 Intake & Output 07/14/19 07/15/19 07/15/19 18:59 06:59 18:59 Intake Total 750 840 Output Total 750 Balance 750 -750 840 Intake: Intake, IV Titration 525 Amount Lactated Ringers 1,000 ml 525 @ 75 mls/hr IV .[id number] ERIK Rx#:[id number] Oral 225 840 Output: Urine 750 Other: Voiding Method Toilet Toilet Toilet # Voids 1 - Exam PHYSICAL EXAMINATION: GENERAL: The patient is alert and oriented x3, not in any acute distress. Well developed, well nourished. HEENT: Pupils are round and equally reacting to light. EOMI. No scleral icterus. No conjunctival pallor. Normocephalic, atraumatic. No pharyngeal erythema. No thyromegaly. CARDIOVASCULAR: S1 and S2 present. No murmurs, rubs, or gallops. PULMONARY: Chest is clear to auscultation, no wheezing or crackles. ABDOMEN: Soft, nontender, nondistended, normoactive bowel sounds. No palpable organomegaly. MUSCULOSKELETAL: No joint swelling or deformity. EXTREMITIES: No cyanosis, clubbing, or pedal edema. NEUROLOGICAL: Gross neurological examination did not reveal any focal deficits. SKIN: No rashes. - Labs CBC & Chem 7: 07/15/19 06:55 Labs: Abnormal Lab Results - Last 24 Hours (Table) 07/15/19 Range/Units 06:55 RBC 3.58 L (3.80-5.40) m/uL Hgb 11.2 L (11.4-16.0) gm/dL Assessment and Plan Assessment: 1. Status post ORIF left knee patellar fracture 2. Chronic atrial fibrillation 3. Gastroesophageal reflux disease 4. Anemia, chronic disease Patient is status post ORIF left knee patellar fracture; POD #3; we will continue to do recommend DVT prophylaxis with systemic anticoagulation therapy; incentive spirometry; continue with current pain control medications; patient will continue to ambulate with physical therapy. Sitting as tolerated; knee. His remains intact; possible discharge home in next 24 hours with home health care
[2019-07-15] MEDS: SENNOSIDES-DOCUSATE SODIUM 1 EACH TAB PO SCH (19:32)
[2019-07-15 23:36] VITALS: PULSE 68
[2019-07-16 07:33] VITALS: BP 123/78; RESP 16; TEMP 99.1
[2019-07-16] MEDS: PANTOPRAZOLE 40 MG TABLET PO SCH (08:24)
[2019-07-16] MEDS: LORATADINE 10 MG TAB PO SCH (08:25)
[2019-07-16] MEDS: CALCIUM CARB-VIT D 500MG-200UN 1 EACH TAB PO SCH (08:25)
[2019-07-16] MEDS: CHOLECALCIFEROL 1,000 UNIT TAB PO SCH (08:25)
[2019-07-16] MEDS: MULTIVITAMINS, THERA 1 EACH TAB PO SCH (08:25)
[2019-07-16] MEDS: PROPRANOLOL LA 80 MG CAP.SA.24H PO SCH (08:29)
[2019-07-16] MEDS: AZITHROMYCIN 250 MG PO SCH (08:33)
--- NOTE | 2019-07-16 11:32 | P.DS ---
Providers Date of admission: 07/14/19 15:28 Expected date of discharge: 07/16/19 Attending physician: Wilfredo Agee Consults: 07/12/19 13:09 Consult Physician Routine Consulting Provider: Du Morin Consult Reason/Comments: post op medical management Do you want consulting provider notified?: Yes Primary care physician: Sophia Judge - Discharge Diagnosis(es) (1) Left knee pain Current Visit: Yes Status: Acute (2) Status post fall Current Visit: Yes Status: Acute (3) Patellar sleeve fracture of left knee Current Visit: Yes Status: Acute Hospital Course: This is a pleasant 79-year-old female who presented with a left displaced patella fracture who failed outpatient conservative therapy. She was admitted for an ORIF of the left patella fracture. The patient tolerated the procedure well and did well postoperatively. She has been able to ambulate with a hinged knee brace intact in extension. She feels her left knee pain has been adequate ly controlled. She is eating and voiding without difficulty. She feels she is ready for discharge today. Condition on day of discharge stable. Patient will be discharged home. Patient was cleared preoperatively for surgery by Dr. Judge. Patient currently denies any nausea, vomiting, fever, or chills. Patient is eating and voiding freely without difficulty. Dressing on the left knee remains clean, dry, intact. Patient should keep this dressing intact. We discussed this may remove dressing on Thursday and may shower without a dressing over the incision site at that time these remains dry over the next 48 hours. Patient should continue to keep glue over the incision site and intact. She may continue to weight-bear as tolerated with her hinged knee brace intact in the extension position. She is given a prescription for [place] 5 mg/325 mg 1 tab every 4 hours as needed for pain, dispensed #42. MAPS has been reviewed. She is also given a prescription for Colace 100 mg twice a day for constipation. She may resume other previously prescribed home medications. Nursing will currently planned to talk with pharmacy on when the patient should restart her home prescribed Xarelto. Patient usually takes his medication 1 tab daily in the morning. Physical Exam on day of discharge of the left lower extremity: Patient is awake, alert, and oriented 3 Vital signs stable Good chest excursion with deep inspiration and expiration Abdomen soft nontender No signs or symptoms of DVT; no calf pain Hinged knee brace is locked in the extension position Brace is removed during physical examination Dressing over the incision site over the left patella is clean, dry, intact No active drainage over the incision site Some evidence of bruising around the surgical site No significant pain with palpation over the surgical site Dressing and hinged knee brace reapplied during physical examination She is able to wiggle toes and move ankle of the left foot without significant difficulty Procedures: ORIF for left displaced patellar fracture Patient Condition at Discharge: Stable Plan - Discharge Summary Discharge Rx Participant: Yes New Discharge Prescriptions: New HYDROcodone/APAP 5-325MG [[place] 5-325] 1 tab PO Q4HR PRN #42 tab PRN Reason: Pain Docusate [Colace] 100 mg PO BID #60 capsule No Action Alendronate Sodium [Fosamax] 70 mg PO FR Ascorbic Acid [Vitamin C] 1,000 mg PO DAILY Calcium Carbonate/Vitamin D3 [Calcium 500-Vit D3 600 Tablet] 1 tab PO DAILY Cholecalciferol [Vitamin D3] 5,000 unit PO DAILY Glucosamine-Chondr 500-400Mg 1 tab PO BID Loratadine [Claritin] 10 mg PO DAILY Multivitamins, Thera [Multivitamin (formulary)] 1 tab PO DAILY Propranolol HCl [Inderal Xl] 80 mg PO DAILY Otc Nasal Dunlap 1 spray NASAL HS Turmeric Root Extract [Turmeric] 500 mg PO DAILY Nexium(Unknown Dose) 1 tab PO QAM Xarelto (Unknown Dose) 1 tab PO DAILY Discharge Medication List Alendronate Sodium [Fosamax] 70 mg PO FR 01/06/17 [History] Ascorbic Acid [Vitamin C] 1,000 mg PO DAILY 01/06/17 [History] Calcium Carbonate/Vitamin D3 [Calcium 500-Vit D3 600 Tablet] 1 tab PO DAILY 01/06/17 [History] Cholecalciferol [Vitamin D3] 5,000 unit PO DAILY 01/06/17 [History] Glucosamine-Chondr 500-400Mg 1 tab PO BID 01/06/17 [History] Loratadine [Claritin] 10 mg PO DAILY 01/06/17 [History] Multivitamins, Thera [Multivitamin (formulary)] 1 tab PO DAILY 01/06/17 [History] Propranolol HCl [Inderal Xl] 80 mg PO DAILY 01/06/17 [History] Nexium(Unknown Dose) 1 tab PO QAM 07/07/19 [History] Otc Nasal Dunlap 1 spray NASAL HS 07/07/19 [History] Turmeric Root Extract [Turmeric] 500 mg PO DAILY 07/07/19 [History] Xarelto (Unknown Dose) 1 tab PO DAILY 07/07/19 [History] HYDROcodone/APAP 5-325MG [[place] 5-325] 1 tab PO Q4HR PRN #42 tab 07/13/19 [Rx] Docusate [Colace] 100 mg PO BID #60 capsule 07/15/19 [Rx] Follow up Appointment(s)/Referral(s): [facility], [NON-STAFF] - Sophia Judge MD [Primary Care Provider] - 07/20/19 2:30 pm Wilfredo Agee MD [STAFF PHYSICIAN] - 07/26/19 11:05 am Activity/Diet/Wound Care/Special Instructions: Keep wound clean and dry Take meds as directed Follow-up with Dr. Agee in office Weight bear as tolerated in brace only in locked extension May shower in 3 days if no bleeding Call [facility] with any questions or concerns, . Discharge Disposition: HOME WITH HOME HEALTH SERVICES
[2019-07-16] MEDS: RIVAROXABAN 20 MG TAB PO SCH (13:47)
== END 2019-07-16 14:22 | disposition home health service (06) ==
LOC: OR 09:24 → 4SSUR 13:04 → OR 07-14 15:28 → 4SSUR 07-14 15:28
PROVIDERS: ADMIT Orthopaedic Surgery Sports Medicine; ATTEND Orthopaedic Surgery Sports Medicine
DX: S82.032A Displaced transverse fracture of left patella, initial encounter for closed fracture (principal); S86.812A Strain of other muscle(s) and tendon(s) at lower leg level, left leg, initial encounter; S80.212A Abrasion, left knee, initial encounter; H91.92 Unspecified hearing loss, left ear; I48.0 Paroxysmal atrial fibrillation; I34.0 Nonrheumatic mitral (valve) insufficiency; K21.9 Gastro-esophageal reflux disease without esophagitis; C73 Malignant neoplasm of thyroid gland; E89.0 Postprocedural hypothyroidism; M81.0 Age-related osteoporosis without current pathological fracture; D63.8 Anemia in other chronic diseases classified elsewhere; A37.90 Whooping cough, unspecified species without pneumonia; F17.200 Nicotine dependence, unspecified, uncomplicated; E11.22 Type 2 diabetes mellitus with diabetic chronic kidney disease; N18.9 Chronic kidney disease, unspecified; R56.9 Unspecified convulsions; K75.9 Inflammatory liver disease, unspecified; Z88.2 Allergy status to sulfonamides; Z79.899 Other long term (current) drug therapy; Z79.01 Long term (current) use of anticoagulants; Z79.891 Long term (current) use of opiate analgesic; Z97.3 Presence of spectacles and contact lenses; Z90.89 Acquired absence of other organs; Z98.51 Tubal ligation status; Z98.890 Other specified postprocedural states; Z85.828 Personal history of other malignant neoplasm of skin; Z86.69 Personal history of other diseases of the nervous system and sense organs; Z86.73 Personal history of transient ischemic attack (TIA), and cerebral infarction without residual deficits; Z82.49 Family history of ischemic heart disease and other diseases of the circulatory system; Z84.1 Family history of disorders of kidney and ureter; Z83.49 Family history of other endocrine, nutritional and metabolic diseases; Z80.9 Family history of malignant neoplasm, unspecified; W01.0XXA Fall on same level from slipping, tripping and stumbling without subsequent striking against object, initial encounter; Y93.K1 Activity, walking an animal
CPT/HCPCS: 27524; 94760; 97116 ×3; 97161; 97535 ×2; 97165; 64447; 76942; 85025 ×2; 73560; G0378 ×3; C1713; J2250; J1100; J0690 ×2; J2405; J2001; J3010; J2795; J2704; J1170 ×2

== ENCOUNTER → 2020-01-06 | Outpatient (CLI) | payer MEDICARE ==
--- NOTE | 2020-01-10 08:27 | MM ---
Reason for exam: screening (asymptomatic). Last mammogram was performed 1 year and 3 months ago. History: Patient is postmenopausal and has history of other cancer at age 52. Took hormonal contraceptives for 24 years beginning at age 26. Took estrogen for 8 years. Took progesterone for 8 years. Physical Findings: A clinical breast exam by your physician is recommended on an annual basis and results should be correlated with mammographic findings. MG 3D Screening Mammo W/Cad Bilateral CC and MLO view(s) were taken. Prior study comparison: October 15, 2018, right breast MG 3d work up w/cad RT. October 13, 2018, bilateral MG 3d screening mammo w/cad. The breast tissue is heterogeneously dense. This may lower the sensitivity of mammography. Stable benign calcifications. There is no discrete abnormality. No significant changes when compared with prior studies. ASSESSMENT: Benign, BI-RAD 2 RECOMMENDATION: Routine screening mammogram of both breasts in 1 year.
== END | disposition home or self-care (01) ==
LOC: RADMAMWWP 09:54
PROVIDERS: ATTEND Internal Medicine
DX: Z12.31 Encounter for screening mammogram for malignant neoplasm of breast (principal)
CPT/HCPCS: 77063; 77067

== ENCOUNTER 2020-01-17 22:10 | Emergency (ER) | payer MEDICARE ==
[2020-01-17 22:16] VITALS: RESP 18
[2020-01-17] MEDS ORDERED: SODIUM CHLORIDE 0.9% 500 ML 500 ML IV ONE (22:31)
--- NOTE | 2020-01-17 22:44 | ED ---
Skin/Abscess/FB HPI - General Chief complaint: Skin/Abscess/Foreign Body Stated complaint: Cellulitis Time Seen by Provider: 01/17/20 22:26 Source: patient Mode of arrival: ambulatory Limitations: no limitations - History of Present Illness Initial comments: 79-year-old female patient presents to the emergency department today for evaluation of increased pain, swelling, redness to the right lower leg. Patient states that she started to have redness and swelling on Thursday evening. States she did see her physician on Thursday and was started on Keflex. Patient states today the pain and swelling seems to be worse. States that she has been having chills and sweats at night. States she feels rundown and ill. She denies any known fever. Patient denies history of similar symptoms. Denies history of diabetes. She denies any wounds to the leg. Patient denies any recent rash, cough, shortness of breath, chest pain, abdominal pain, nausea, vomiting, diarrhea, constipation, back pain, numbness, tingling, dizziness, weakness, hematuria, dysuria, urinary urgency, urinary frequency, headache, visual changes, or any other complaints. - Related Data Home Medications Medication Instructions Recorded Confirmed Cholecalciferol [Vitamin D3] 5,000 unit PO DAILY 01/06/17 01/17/20 Loratadine [Claritin] 10 mg PO HS 01/06/17 01/17/20 Multivitamins, Thera [Multivitamin 1 tab PO DAILY 01/06/17 01/17/20 (formulary)] Propranolol HCl [Inderal Xl] 80 mg PO HS 01/06/17 01/17/20 Biotin 10,000 mcg PO DAILY 01/17/20 01/17/20 Calcium Carbonate/Vitamin D3 2 tab PO DAILY 01/17/20 01/17/20 [Calcium 600-Vit D3 200 Tablet] Cephalexin [Keflex] 500 mg PO Q8HR 01/17/20 01/17/20 Esomeprazole Magnesium [NexIUM] 40 mg PO DAILY 01/17/20 01/17/20 Fluticasone Furoate [Flonase 1 spray EA NOSTRIL HS 01/17/20 01/17/20 Sensimist] Glucos Sul 2Kcl/MSM/Chond/C/Mn 1 cap PO BID 01/17/20 01/17/20 [Glucosamine Chondroitin Cap] Rivaroxaban [Xarelto] 20 mg PO DAILY 01/17/20 01/17/20 Vit C-Bioflavonoid 1,000-100mg 1 tab PO HS 01/17/20 01/17/20 Zinc 100 mg PO DAILY 01/17/20 01/17/20 Allergies Allergy/AdvReac Type Severity Reaction Status Date / Time Sulfa (Sulfonamide Allergy ITCHING, Verified 01/17/20 23:03 Antibiotics) SOB Review of Systems ROS Statement: Those systems with pertinent positive or pertinent negative responses have been documented in the HPI. ROS Other: All systems not noted in ROS Statement are negative. Past Medical History Past Medical History: Atrial Fibrillation, Cancer, GERD/Reflux, Hearing Disorder / Deafness, Osteoarthritis (OA) Additional Past Medical History / Comment(s): SKIN CA ON NOSE 1998, hx thyroid cancer. SINUS PROBLEMS. HEADACHES. Deaf left ear. Currently wearing brace on left knee and using walker History of Any Multi-Drug Resistant Organisms: None Reported Past Surgical History: Adenoidectomy, Tonsillectomy, Tubal Ligation Additional Past Surgical History / Comment(s): D & C. COLONOSCOPY. SKIN CANCER ON NOSE REMOVED. Partial thyroidectomy Past Anesthesia/Blood Transfusion Reactions: No Reported Reaction Additional Past Anesthesia/Blood Transfusion Reaction / Comment(s): "Mother was beligerent after one of surgeries." Past Psychological History: No Psychological Hx Reported Past Alcohol Use History: None Reported Past Drug Use History: None Reported - Past Family History Father Family Medical History: Cancer General Exam Limitations: no limitations General appearance: alert, in no apparent distress, other (This is a well- developed, well-nourished, adult female patient in no acute distress. Vital signs upon presentation are temperature 98.7F, pulse 100, respirations 18, blood pressure 125/62, pulse ox 98% on room air.) Respiratory exam: Present: normal lung sounds bilaterally. Absent: respiratory distress, wheezes, rales, rhonchi, stridor Cardiovascular Exam: Present: regular rate, normal rhythm, normal heart sounds. Absent: systolic murmur, diastolic murmur, rubs, gallop, clicks GI/Abdominal exam: Present: soft, normal bowel sounds. Absent: distended, tenderness, guarding, rebound, rigid Extremities exam: Present: full ROM, normal capillary refill, other (Right lower leg erythema, swelling, extending from about mid [place] down to the toes. This is circumferential. ). Absent: tenderness, pedal edema, joint swelling, calf tenderness Neurological exam: Present: alert, oriented X3, CN II-XII intact Psychiatric exam: Present: normal affect, normal mood Skin exam: Present: warm, dry, intact, normal color. Absent: rash Course Vital Signs 01/17/20 01/18/20 01/18/20 22:12 00:10 00:30 Temperature 98.7 F 100.8 F H Pulse Rate 100 97 Respiratory 18 18 Rate Blood Pressure 125/62 140/79 O2 Sat by Pulse 98 97 Oximetry Medical Decision Making - Medical Decision Making 79-year-old female patient presents to the emergency department today for evaluation of right lower extremity cellulitis. Patient started antibiotics yesterday has taken 2 total doses. Patient states that the redness seemed to spread today so she presented here for further evaluation. Labs reviewed and revealed normal white blood cell, or patient did have low-grade fever at time of discharge however we did discuss inpatient versus outpatient treatment patient would like to try outpatient treatment at this time. She did receive 1 dose of antibiotics here in the department. She will be discharged to continue the Keflex. She is instructed to follow-up with her primary care physician for recheck in 1-2 days. She does have an appointment on . Return parameters including high fevers, vomiting, and weakness are discussed in detail . She verbalizes understanding and agrees with this plan - Lab Data Result diagrams: 01/17/20 22:54 01/17/20 22:54 Lab Results 01/17/20 01/17/20 01/17/20 Range/Units 22:54 22:54 22:54 WBC 8.1 (3.8-10.6) k/uL RBC 3.40 L (3.80-5.40) m/uL Hgb 10.9 L (11.4-16.0) gm/dL Hct 32.7 L (34.0-46.0) % MCV 96.2 (80.0-100.0) fL MCH 32.1 (25.0-35.0) pg MCHC 33.4 (31.0-37.0) g/dL RDW 12.8 (11.5-15.5) % Plt Count 235 (150-450) k/uL Neutrophils % 73 % Lymphocytes % 18 % Monocytes % 5 % Eosinophils % 1 % Basophils % 0 % Neutrophils # 5.9 (1.3-7.7) k/uL Lymphocytes # 1.5 (1.0-4.8) k/uL Monocytes # 0.4 (0-1.0) k/uL Eosinophils # 0.1 (0-0.7) k/uL Basophils # 0.0 (0-0.2) k/uL Sodium 138 (137-145) mmol/L Potassium 4.4 (3.5-5.1) mmol/L Chloride 103 (98-107) mmol/L Carbon Dioxide 27 (22-30) mmol/L Anion Gap 8 mmol/L BUN 26 H (7-17) mg/dL Creatinine 0.59 (0.52-1.04) mg/dL Est GFR (CKD-EPI)AfAm >90 (>60 ml/min/1.73 sqM) Est GFR (CKD-EPI)NonAf 89 (>60 ml/min/1.73 sqM) Glucose 115 H (74-99) mg/dL Plasma Lactic Acid Kike 0.9 (0.7-2.0) mmol/L Calcium 9.3 (8.4-10.2) mg/dL Total Bilirubin 0.5 (0.2-1.3) mg/dL AST 39 H (14-36) U/L ALT 26 (4-34) U/L Alkaline Phosphatase 110 (38-126) U/L Total Protein 7.6 (6.3-8.2) g/dL Albumin 4.1 (3.5-5.0) g/dL Disposition Clinical Impression: Cellulitis of right leg Disposition: HOME SELF-CARE Condition: Good Instructions (If sedation given, give patient instructions): Cellulitis (ED) Additional Instructions: Continue antibiotics. Take tylenol or motrin for pain control. Follow up with the primary care physician for recheck in 1-2 days. Return to the emergency department for any new, worsening, or concerning symptoms. Is patient prescribed a controlled substance at d/c from ED?: No Referrals: Sophia Judge MD [Primary Care Provider] - 1-2 days Time of Disposition: 00:01
[2020-01-17 23:08] LABS: Basophils % (A) 0 %; Eosinophils # (A) 0.1 k/uL (0-0.7); Eosinophils % (A) 1 %; HCT 32.7 % (34.0-46.0); HGB 10.9 gm/dL (11.4-16.0); Lymphocytes # (A) 1.5 k/uL (1.0-4.8); Lymphocytes % (A) 18 %; MCH 32.1 pg (25.0-35.0); MCHC 33.4 g/dL (31.0-37.0); MCV 96.2 fL (80.0-100.0); Mean Platelet Volume 8.4; Monocytes # (A) 0.4 k/uL (0-1.0); Monocytes % (A) 5 %; Neutrophils # (A) 5.9 k/uL (1.3-7.7); Neutrophils % (A) 73 %; Platelet Count 235 k/uL (150-450); RDW 12.8 % (11.5-15.5); WBC 8.1 k/uL (3.8-10.6)
[2020-01-17 23:18] LABS: ALT 26 U/L (4-34); AST 39 U/L (14-36); African American GFR (CKD) >90 (>60 ml/min/1.73 sqM); Albumin 4.1 g/dL (3.5-5.0); Alkaline Phosphatase 110 U/L (38-126); Anion Gap 8 mmol/L; Blood Urea Nitrogen 26 mg/dL (7-17); Calcium 9.3 mg/dL (8.4-10.2); Carbon Dioxide 27 mmol/L (22-30); Chloride 103 mmol/L (98-107); Glucose 115 mg/dL (74-99); Non-African American GFR(CKD) 89 (>60 ml/min/1.73 sqM); Potassium 4.4 mmol/L (3.5-5.1); Sodium 138 mmol/L (137-145); Total Bilirubin 0.5 mg/dL (0.2-1.3); Total Protein 7.6 g/dL (6.3-8.2)
[2020-01-18] MEDS ORDERED: ACETAMINOPHEN TAB 500 MG TAB PO STA (00:11)
[2020-01-18 00:17] VITALS: TEMP 100.8
[2020-01-18 00:44] VITALS: BP 140/79; PULSE 97
== END 2020-01-18 00:40 | disposition home or self-care (01) ==
LOC: EC 22:10
DX: L03.115 Cellulitis of right lower limb (principal); I48.91 Unspecified atrial fibrillation; H91.92 Unspecified hearing loss, left ear; K21.9 Gastro-esophageal reflux disease without esophagitis; Z79.01 Long term (current) use of anticoagulants; Z79.899 Other long term (current) drug therapy; Z88.2 Allergy status to sulfonamides; Z85.850 Personal history of malignant neoplasm of thyroid; Z85.828 Personal history of other malignant neoplasm of skin; Z90.89 Acquired absence of other organs
CPT/HCPCS: 36415; 80053; 83605; 85025; 87040; 99284; 96365; J0696

== ENCOUNTER → 2020-01-25 | Outpatient (CLI) | payer MEDICARE ==
--- NOTE | 2020-01-25 15:50 | XR ---
EXAMINATION TYPE: XR ankle complete RT DATE OF EXAM: 01/25/2020 CLINICAL HISTORY: Medial pain and swelling. TECHNIQUE: Frontal, lateral and oblique images of the right ankle are obtained. COMPARISON: None. FINDINGS: There is no acute fracture/dislocation evident in the right ankle. The ankle mortise appe ars within normal limits. Moderate-sized superior Calcaneal spur. The overlying soft tissue appears u nremarkable. IMPRESSION: As above.
== END | disposition home or self-care (01) ==
LOC: RADXRYALE 15:27
PROVIDERS: ATTEND Internal Medicine
DX: M25.473 Effusion, unspecified ankle (principal)

== ENCOUNTER → 2021-02-07 | Outpatient (CLI) | payer MEDICARE ==
--- NOTE | 2021-02-11 14:29 | MM ---
Reason for exam: screening (asymptomatic). Last mammogram was performed 1 year and 1 month ago. History: Patient is postmenopausal and has history of other cancer at age 52. Took hormonal contraceptives for 24 years beginning at age 26. Took estrogen for 8 years. Took progesterone for 8 years. Physical Findings: A clinical breast exam by your physician is recommended on an annual basis and results should be correlated with mammographic findings. MG 3D Screening Mammo W/Cad Bilateral CC and MLO view(s) were taken. Prior study comparison: January 06, 2020, bilateral MG 3d screening mammo w/cad. October 15, 2018, right breast MG 3d work up w/cad RT. The breast tissue is heterogeneously dense. This may lower the sensitivity of mammography. No significant changes when compared with prior studies. ASSESSMENT: Benign, BI-RAD 2 RECOMMENDATION: Routine screening mammogram of both breasts in 1 year.
== END | disposition home or self-care (01) ==
LOC: RADMAMWWP 09:51
PROVIDERS: ATTEND Internal Medicine
DX: Z12.31 Encounter for screening mammogram for malignant neoplasm of breast (principal)
CPT/HCPCS: 77063; 77067

== ENCOUNTER → 2021-07-19 | Outpatient (CLI) | payer MEDICARE ==
--- NOTE | 2021-07-19 15:36 | BD ---
EXAMINATION TYPE: Axial Bone Density DATE OF EXAM: 07/19/2021 COMPARISON: 05/09/2019 CLINICAL HISTORY: Height: 63.7 IN Weight: 133 LBS FRAX RISK QUESTIONS: History of Fracture in Adulthood: LT PATELLA AGE 79 Secondary Osteoporosis: 3. Menopause before 45: TOTAL HYST AGE 50 RISK FACTORS HISTORY OF: Active: YES Postmenopausal woman: AGE 50 Take estrogen and/or progesterone medications: NOT NOW How long: FOR 1 YEAR MEDICATIONS: Osteoporosis Medications: YES Which medication: ALENDRONATE SODIUM How Lon+ YEARS Additional Medications: CALCIUM, VIT D, ALENDRONATE SODIUM, TOPROL, MULTI VITAMIN, ZINC, BIOTIN, GLUC OSAMINE CHONDROITIN, FLONASE, CLARITIN, MELATONIN, MOMETASONE FUROATE, BETAMETHASONE, ESOMEPRAZOLE EXAM MEASUREMENTS: Bone mineral densitometry was performed using the Krush System. Bone mineral density as measured about the Lumbar spine is: ----- L1-L4(G/cm2): 1.101 T Score Values are as follows: ----- L2: 0.3 ----- L3: -1.5 ----- L4: -1.2 ----- L1-L4: -0.7 Bone mineral density has: Increased 1.8% since study of: 05/09/2019 Bone mineral density about the R hip (g/cm2): 0.739 Bone mineral density about the L hip (g/cm2): 0.815 T Score values are as follows: -----R Neck: -2.2 -----L Neck: -1.6 -----R Total: -2.4 -----L Total: -1.6 Bone mineral density has: Decreased -2.8% since study of: 05/09/2019 IMPRESSION: Osteopenia (T Score between -2.5 and -1). There is slightly increased risk of fracture and the patient may be considered for treatment. Re-Screen 2-5 years. NOTE: T-SCORE=SD OF THE YOUNG ADULT MEAN.
== END | disposition home or self-care (01) ==
LOC: RADBDWWP 12:39
PROVIDERS: ATTEND Internal Medicine
DX: M85.80 Other specified disorders of bone density and structure, unspecified site (principal)
CPT/HCPCS: 77080

== ENCOUNTER → 2022-02-10 | Outpatient (CLI) | payer MEDICARE ==
--- NOTE | 2022-02-11 16:58 | MM ---
Reason for Exam: Screening (asymptomatic). Last screening mammogram was performed 12 month(s) ago. Patient History: Menarche at age 14. First Full-Term at age 29. Left ovary removed at age 60. Right ovary removed at age 60. Hysterectomy at age 60. Postmenopausal. Other cancer, age 52. Estrogen for 8 years until age 62. Progesterone for 8 years until age 62. Hormonal Contraceptives for 24 years from age 26 until age 50. Maternal cousin had breast cancer, age 80. Risk Values: Nuris 5 year model risk: 1.9%. NCI Lifetime model risk: 3.1%. Prior Study Comparison: 10/15/2018 Right Diagnostic Mammogram, [facility]. 01/06/2020 Bilateral Screening Mammogram, [facility]. 02/07/2021 Bilateral Screening Mammogram, [facility]. Tissue Density: The breast tissue is heterogeneously dense. This may lower the sensitivity of mammography. Findings: Analyzed By CAD. There is no suspicious group of microcalcifications or new suspicious mass in either breast. Overall Assessment: Benign, BI-RAD 2 Management: Screening Mammogram of both breasts in 1 year. 1. Patient should continue monthly self breast exams. 2. A clinical breast exam by your physician is recommended on an annual basis. 3. This exam should not preclude additional follow-up of suspicious palpable abnormalities. Electronically signed and approved by: Aguilar Martin M.D. Radiologist
== END | disposition home or self-care (01) ==
LOC: RADMAMWWP 13:19
PROVIDERS: ATTEND Internal Medicine
DX: Z12.31 Encounter for screening mammogram for malignant neoplasm of breast (principal)
CPT/HCPCS: 77063; 77067

== ENCOUNTER 2022-03-23 12:06 | Emergency (ER) | payer MEDICARE ==
[2022-03-23 12:21] VITALS: RESP 16
[2022-03-23 13:20] LABS: Basophils % (A) 1 %; Eosinophils # (A) 0.1 k/uL (0-0.7); Eosinophils % (A) 1 %; HGB 12.9 gm/dL (11.4-16.0); Lymphocytes # (A) 0.8 k/uL (1.0-4.8); Lymphocytes % (A) 15 %; MCH 30.6 pg (25.0-35.0); MCHC 31.5 g/dL (31.0-37.0); Mean Platelet Volume 8.3; Monocytes # (A) 0.2 k/uL (0-1.0); Monocytes % (A) 4 %; Neutrophils # (A) 4.1 k/uL (1.3-7.7); Neutrophils % (A) 77 %; Platelet Count 219 k/uL (150-450); RBC 4.22 m/uL (3.80-5.40); RDW 12.7 % (11.5-15.5); WBC 5.3 k/uL (3.8-10.6)
[2022-03-23 13:30] LABS: INR 1.5 (<1.2)
[2022-03-23 13:38] LABS: ALT 18 U/L (4-34); AST 29 U/L (14-36); African American GFR (CKD) >90 (>60 ml/min/1.73 sqM); Albumin 4.3 g/dL (3.5-5.0); Alkaline Phosphatase 99 U/L (38-126); Anion Gap 8 mmol/L; Blood Urea Nitrogen 23 mg/dL (7-17); Calcium 8.8 mg/dL (8.4-10.2); Carbon Dioxide 33 mmol/L (22-30); Chloride 97 mmol/L (98-107); Glucose 108 mg/dL (74-99); Non-African American GFR(CKD) 86 (>60 ml/min/1.73 sqM); Potassium 4.1 mmol/L (3.5-5.1); Sodium 138 mmol/L (137-145); Total Bilirubin 0.7 mg/dL (0.2-1.3); Total Protein 7.6 g/dL (6.3-8.2)
[2022-03-23] MEDS ORDERED: MECLIZINE 12.5 MG TAB PO STA (13:40)
--- NOTE | 2022-03-23 13:45 | ED ---
Dizziness HPI - General Chief Complaint: Dizziness Stated Complaint: SOB Time Seen by Provider: 03/23/22 13:30 Source: patient, family, RN notes reviewed, old records reviewed Mode of arrival: wheelchair Limitations: no limitations - History of Present Illness Initial Comments: This is a well-appearing 81-year-old female that presents to the emergency room with complaints of dizziness that came on suddenly while at hindu today. She states it is worse when she bends over but when upright it is resolved. She states that she does have a fullness in her right ear and she has been using some sweet oil, last use a couple days ago. She has a history of vertigo, last episode a couple of years ago. She denies any fevers. She does have intermittent nausea with the dizziness. She denies any headaches, vision changes, chest pain or difficulty breathing. MD Complaint: dizziness -: hour(s) Timing: sudden onset Description: "room spinning", off-balance History of Same: Yes History of Trauma: No Associated Symptoms: other (fullness right ear) - Related Data Home Medications Medication Instructions Recorded Confirmed Cholecalciferol [Vitamin D3] 5,000 unit PO DAILY 01/06/17 01/17/20 Loratadine [Claritin] 10 mg PO HS 01/06/17 01/17/20 Multivitamins, Thera [Multivitamin 1 tab PO DAILY 01/06/17 01/17/20 (formulary)] Propranolol HCl [Inderal Xl] 80 mg PO HS 01/06/17 01/17/20 Biotin 10,000 mcg PO DAILY 01/17/20 01/17/20 Calcium Carbonate/Vitamin D3 2 tab PO DAILY 01/17/20 01/17/20 [Calcium 600-Vit D3 200 Tablet] Esomeprazole Magnesium [NexIUM] 40 mg PO DAILY 01/17/20 01/17/20 Fluticasone Furoate [Flonase 1 spray EA NOSTRIL HS 01/17/20 01/17/20 Sensimist] Glucos Sul 2Kcl/MSM/Chond/C/Mn 1 cap PO BID 01/17/20 01/17/20 [Glucosamine Chondroitin Cap] Rivaroxaban [Xarelto] 20 mg PO DAILY 01/17/20 01/17/20 Vit C-Bioflavonoid 1,000-100mg 1 tab PO HS 01/17/20 01/17/20 Zinc 100 mg PO DAILY 01/17/20 01/17/20 cephALEXin [Keflex] 500 mg PO Q8HR 01/17/20 01/17/20 Previous Rx's Medication Instructions Recorded Meclizine [Antivert] 25 mg PO TID PRN #15 tab 03/23/22 Allergies Allergy/AdvReac Type Severity Reaction Status Date / Time Sulfa (Sulfonamide Allergy ITCHING, Verified 03/23/22 12:21 Antibiotics) SOB Review of Systems ROS Statement: Those systems with pertinent positive or pertinent negative responses have been documented in the HPI. ROS Other: All systems not noted in ROS Statement are negative. Past Medical History Past Medical History: Atrial Fibrillation, Cancer, GERD/Reflux, Hearing Disorder / Deafness, Osteoarthritis (OA) Additional Past Medical History / Comment(s): SKIN CA ON NOSE 1998, hx thyroid cancer. SINUS PROBLEMS. HEADACHES. Deaf left ear. Currently wearing brace on left knee and using walker History of Any Multi-Drug Resistant Organisms: None Reported Past Surgical History: Adenoidectomy, Tonsillectomy, Tubal Ligation Additional Past Surgical History / Comment(s): D & C. COLONOSCOPY. SKIN CANCER ON NOSE REMOVED. Partial thyroidectomy Past Anesthesia/Blood Transfusion Reactions: No Reported Reaction Additional Past Anesthesia/Blood Transfusion Reaction / Comment(s): "Mother was beligerent after one of surgeries." Past Psychological History: No Psychological Hx Reported Smoking Status: Never smoker Past Alcohol Use History: None Reported Past Drug Use History: None Reported - Past Family History Father Family Medical History: Cancer General Exam Limitations: no limitations General appearance: alert, in no apparent distress Head exam: Present: atraumatic, normocephalic Eye exam: Present: EOMI. Absent: scleral icterus, conjunctival injection, periorbital swelling Expanded Ear exam: Present: normal external inspection, other (No pain, erythema or cerumen impaction noted). Absent: auricular hematoma, auricular trauma Mouth exam: Absent: drooling, trismus, muffled voice Neck exam: Absent: tenderness, meningismus Respiratory exam: Present: normal lung sounds bilaterally. Absent: respiratory distress, wheezes, rales, rhonchi, stridor, chest wall tenderness, accessory muscle use Cardiovascular Exam: Present: irregular rhythm (Atrial fib ventricular rate 72) Extremities exam: Present: normal capillary refill Back exam: Absent: tenderness Neurological exam: Present: alert, oriented X3, CN II-XII intact, normal gait Psychiatric exam: Present: normal affect, normal mood Skin exam: Present: warm, dry, normal color. Absent: cyanosis, diaphoretic, petechiae, pallor Course Vital Signs 03/23/22 03/23/22 03/23/22 12:18 14:14 15:35 Temperature 96.9 F L 97.7 F 97.9 F Pulse Rate 71 73 70 Respiratory 16 16 16 Rate Blood Pressure 122/78 128/78 O2 Sat by Pulse 99 98 100 Oximetry EKG Findings - EKG Results: EKG: interpreted by MICHAELD (QRS 0.90, QTC 0.399, normal axis; atrial fibrillation) EKG shows: atrial fibrillation Medical Decision Making - Medical Decision Making Patient presents with dizziness that started with bending over in hindu today. She re-created the dizziness when bending over in the exam room. Resolved once she sat upright. No evidence of nystagmus. She denies any headaches, no nausea vomiting or diarrhea. No fevers. Denies any head trauma. She states that she has had previous vertigo with last episode a couple of years ago. Patient was given Antivert and her dizziness has resolved. She did bend over and could not re-create the dizziness. She is ambulatory with a steady gait. Vital signs are stable. This is likely benign positional vertigo as onset was sudden with intense spinning and nausea. Worse with position changes, bending over. There is no evidence of nystagmus. She states that she does have hearing loss in her left ear chronic. No focal neurological deficits. Her symptoms have resolved after antivert. She was given a prescription for Antivert to take as needed. She was also given a referral to ENT. She states that she does have an appointment with her hand folder tomorrow. She was discharged home with family, directed to return to the emergency room with any new or concerning symptoms. - Lab Data Result diagrams: 03/23/22 12:54 03/23/22 12:54 Lab Results 03/23/22 03/23/22 03/23/22 Range/Units 12:54 12:54 12:54 WBC 5.3 (3.8-10.6) k/uL RBC 4.22 (3.80-5.40) m/uL Hgb 12.9 (11.4-16.0) gm/dL Hct 41.0 (34.0-46.0) % MCV 97.0 (80.0-100.0) fL MCH 30.6 (25.0-35.0) pg MCHC 31.5 (31.0-37.0) g/dL RDW 12.7 (11.5-15.5) % Plt Count 219 (150-450) k/uL MPV 8.3 Neutrophils % 77 % Lymphocytes % 15 % Monocytes % 4 % Eosinophils % 1 % Basophils % 1 % Neutrophils # 4.1 (1.3-7.7) k/uL Lymphocytes # 0.8 L (1.0-4.8) k/uL Monocytes # 0.2 (0-1.0) k/uL Eosinophils # 0.1 (0-0.7) k/uL Basophils # 0.0 (0-0.2) k/uL PT 15.0 H (9.0-12.0) sec INR 1.5 H (<1.2) Sodium 138 (137-145) mmol/L Potassium 4.1 (3.5-5.1) mmol/L Chloride 97 L (98-107) mmol/L Carbon Dioxide 33 H (22-30) mmol/L Anion Gap 8 mmol/L BUN 23 H (7-17) mg/dL Creatinine 0.63 (0.52-1.04) mg/dL Est GFR (CKD-EPI)AfAm >90 (>60 ml/min/1.73 sqM) Est GFR (CKD-EPI)NonAf 86 (>60 ml/min/1.73 sqM) Glucose 108 H (74-99) mg/dL Calcium 8.8 (8.4-10.2) mg/dL Total Bilirubin 0.7 (0.2-1.3) mg/dL AST 29 (14-36) U/L ALT 18 (4-34) U/L Alkaline Phosphatase 99 (38-126) U/L Troponin I (0.000-0.034) ng/mL Total Protein 7.6 (6.3-8.2) g/dL Albumin 4.3 (3.5-5.0) g/dL Urine Color Urine Appearance (Clear) Urine pH (5.0-8.0) Ur Specific [place] (1.001-1.035) Urine Protein (Negative) Urine Glucose (UA) (Negative) Urine Ketones (Negative) Urine Blood (Negative) Urine Nitrite (Negative) Urine Bilirubin (Negative) Urine Urobilinogen (<2.0) mg/dL Ur Leukocyte Esterase (Negative) 03/23/22 03/23/22 Range/Units 12:54 14:02 WBC (3.8-10.6) k/uL RBC (3.80-5.40) m/uL Hgb (11.4-16.0) gm/dL Hct (34.0-46.0) % MCV (80.0-100.0) fL MCH (25.0-35.0) pg MCHC (31.0-37.0) g/dL RDW (11.5-15.5) % Plt Count (150-450) k/uL MPV Neutrophils % % Lymphocytes % % Monocytes % % Eosinophils % % Basophils % % Neutrophils # (1.3-7.7) k/uL Lymphocytes # (1.0-4.8) k/uL Monocytes # (0-1.0) k/uL Eosinophils # (0-0.7) k/uL Basophils # (0-0.2) k/uL PT (9.0-12.0) sec INR (<1.2) Sodium (137-145) mmol/L Potassium (3.5-5.1) mmol/L Chloride (98-107) mmol/L Carbon Dioxide (22-30) mmol/L Anion Gap mmol/L BUN (7-17) mg/dL Creatinine (0.52-1.04) mg/dL Est GFR (CKD-EPI)AfAm (>60 ml/min/1.73 sqM) Est GFR (CKD-EPI)NonAf (>60 ml/min/1.73 sqM) Glucose (74-99) mg/dL Calcium (8.4-10.2) mg/dL Total Bilirubin (0.2-1.3) mg/dL AST (14-36) U/L ALT (4-34) U/L Alkaline Phosphatase (38-126) U/L Troponin I <0.012 (0.000-0.034) ng/mL Total Protein (6.3-8.2) g/dL Albumin (3.5-5.0) g/dL Urine Color Light Yellow Urine Appearance Clear (Clear) Urine pH 6.5 (5.0-8.0) Ur Specific [place] 1.010 (1.001-1.035) Urine Protein Negative (Negative) Urine Glucose (UA) Negative (Negative) Urine Ketones Negative (Negative) Urine Blood Negative (Negative) Urine Nitrite Negative (Negative) Urine Bilirubin Negative (Negative) Urine Urobilinogen <2.0 (<2.0) mg/dL Ur Leukocyte Esterase Negative (Negative) Disposition Clinical Impression: Vertigo Disposition: HOME SELF-CARE Condition: Good Instructions (If sedation given, give patient instructions): Vertigo (ED), Dizziness (ED) Additional Instructions: Take Antivert as prescribed. Follow-up with ENT doctor this week. Return to the emergency room with any new or concerning symptoms including persistent nausea vomiting, difficulty ambulating or headaches. Prescriptions: Meclizine [Antivert] 25 mg PO TID PRN #15 tab PRN Reason: Vertigo Is patient prescribed a controlled substance at d/c from ED?: No Referrals: Sophia Judge MD [Primary Care Provider] - 1-2 days Saúl Garduno MD [STAFF PHYSICIAN] - 1-2 days Time of Disposition: 14:57
--- NOTE | 2022-03-23 14:12 | XR ---
EXAMINATION TYPE: XR chest 2V DATE OF EXAM: 03/23/2022 COMPARISON: None HISTORY: 81-year-old female dizziness TECHNIQUE: PA and lateral views FINDINGS: Heart borderline enlarged. Hyperinflation. Mild interstitial prominence is a chronic appearance. No c onsolidation or pleural effusion. IMPRESSION: Borderline cardiomegaly. COPD. No definite acute process.
[2022-03-23 14:17] LABS: Appearance,Urine Clear (Clear); Bilirubin,Urine Negative (Negative); Blood,Urine Negative (Negative); Color,Urine Light Yellow; Glucose,Urine (UA) Negative (Negative); Ketones,Urine Negative (Negative); Leukocyte Esterase,Urine Negative (Negative); Nitrite,Urine Negative (Negative); PH, Urine 6.5 (5.0-8.0); Protein,Urine Negative (Negative); Urobilinogen,Urine <2.0 mg/dL (<2.0)
[2022-03-23 15:48] VITALS: BP 128/78; PULSE 70; TEMP 97.9
== END 2022-03-23 15:45 | disposition home or self-care (01) ==
LOC: EC 12:06
DX: R42 Dizziness and giddiness (principal); K21.9 Gastro-esophageal reflux disease without esophagitis; M19.90 Unspecified osteoarthritis, unspecified site; Z86.79 Personal history of other diseases of the circulatory system; Z79.01 Long term (current) use of anticoagulants; Z79.899 Other long term (current) drug therapy; Z88.2 Allergy status to sulfonamides
CPT/HCPCS: 36415; 71046; 80053; 81003; 84484; 85025; 85610; 93005; 99284

== ENCOUNTER → 2023-02-17 | Outpatient (CLI) | payer MEDICARE ==
--- NOTE | 2023-02-18 09:37 | MM ---
Reason for Exam: Screening (asymptomatic). Last screening mammogram was performed 12 month(s) ago. Patient History: Menarche at age 14. First Full-Term at age 29. Left ovary removed at age 60. Right ovary removed at age 60. Hysterectomy at age 60. Postmenopausal. Estrogen for 8 years until age 62. Progesterone for 8 years until age 62. Hormonal Contraceptives for 24 years from age 26 until age 50. Maternal cousin had breast cancer, age 80. Risk Values: Nuris 5 year model risk: 1.8%. NCI Lifetime model risk: 2.8%. Prior Study Comparison: 01/06/2020 Bilateral Screening Mammogram, [facility]. 02/07/2021 Bilateral Screening Mammogram, [facility]. 02/10/2022 Bilateral MG 3D screening mammo w/cad, [facility]. Tissue Density: The breast tissue is heterogeneously dense. This may lower the sensitivity of mammography. Findings: Analyzed By CAD. There is no suspicious group of microcalcifications or new suspicious mass in either breast. Overall Assessment: Benign, BI-RAD 2 Management: Screening Mammogram of both breasts in 1 year. . Patient should continue monthly self-breast exams. A clinical breast exam by your physician is recommended on an annual basis. This exam should not preclude additional follow-up of suspicious palpable abnormalities. Note on Nuris scores and lifetime risk: 1. A Nuris score greater than 3% is considered moderate risk. If this is the case, consider specialist referral to assess eligibility for a risk reducing agent. 2. If overall lifetime risk for the development of breast cancer is 20% or higher, the patient may qualify for future screening with alternating mammogram and breast MRI. Electronically signed and approved by: Mukesh Brantley M.D. Radiologis
== END | disposition home or self-care (01) ==
LOC: RADMAMWWP 12:57
PROVIDERS: ATTEND Internal Medicine
DX: Z12.31 Encounter for screening mammogram for malignant neoplasm of breast (principal); Z78.0 Asymptomatic menopausal state; Z80.3 Family history of malignant neoplasm of breast
CPT/HCPCS: 77063; 77067

== ENCOUNTER → 2023-11-05 | Outpatient (CLI) | payer MEDICARE ==
--- NOTE | 2023-11-05 15:11 | MM ---
Reason for Exam: Clinical finding. Last screening mammogram was performed 9 month(s) ago. Patient History: Menarche at age 14. First Full-Term at age 29. Left ovary removed at age 60. Right ovary removed at age 60. Hysterectomy at age 60. Postmenopausal. Estrogen for 8 years until age 62. Progesterone for 8 years until age 62. Hormonal Contraceptives for 24 years from age 26 until age 50. Maternal cousin had breast cancer, age 80. Risk Values: Nuris 5 year model risk: 1.8%. NCI Lifetime model risk: 2.6%. Prior Study Comparison: 02/07/2021 Bilateral Screening Mammogram, [facility]. 02/10/2022 Bilateral MG 3D screening mammo w/cad, [facility]. 02/17/2023 Bilateral MG 3D screening mammo w/cad, [facility]. Tissue Density: Right: The breasts are heterogeneously dense, which may obscure small masses. Findings: Analyzed By CAD. Pattern appears stable Marker was placed at an area patient previously felt a lump. No current abnormalities felt by the patient. No underlying mammographic abnormality is identified. No suspicious groups of microcalcifications, spiculated or lobular masses, architectural distortion or other secondary signs of malignancy are mammographically apparent. Overall Assessment: Incomplete: need additional imaging evaluation, BI-RAD 0 Management: Diagnostic Breast Ultrasound of the right breast. A negative mammogram report should not preclude additional follow up of suspicious palpable abnormalities. Patient should continue monthly self breast exam. A clinical breast exam by your physician is recommended on an annual basis and results should be correlated with mammographic findings. Note on Nuris scores and lifetime risk: 1. A Nuris score greater than 3% is considered moderate risk. If this is the case, consider specialist referral to assess eligibility for a risk reducing agent. 2. If overall lifetime risk for the development of breast cancer is 20% or higher, the patient may qualify for future screening with alternating mammogram and breast MRI. Electronically signed and approved by: Akin Rascon D.O. Radiologis
--- NOTE | 2023-11-05 15:45 | USB ---
Reason for Exam: Clinical finding. Patient History: Menarche at age 14. First Full-Term at age 29. Left ovary removed at age 60. Right ovary removed at age 60. Hysterectomy at age 60. Postmenopausal. Estrogen for 8 years until age 62. Progesterone for 8 years until age 62. Hormonal Contraceptives for 24 years from age 26 until age 50. Maternal cousin had breast cancer, age 80. Risk Values: Nuris 5 year model risk: 1.8%. NCI Lifetime model risk: 2.6%. Technique: Method: Targeted. Prior Study Comparison: 02/07/2021 Bilateral Screening Mammogram, [facility]. 02/10/2022 Bilateral MG 3D screening mammo w/cad, [facility]. 02/17/2023 Bilateral MG 3D screening mammo w/cad, [facility]. Findings: The upper inner quadrant of the right breast, the axilla of the right breast and the retroareolar of the right breast were scanned. No solid or cystic masses are identified.. Overall Assessment: Negative, BI-RAD 1 Management: Screening Mammogram of both breasts in 4 months. A clinical breast exam by your physician is recommended on an annual basis and results should be correlated with mammographic findings. This exam should not preclude additional follow-up of suspicious palpable abnormalities. Results were given to the patient verbally at the time of exam. Electronically signed and approved by: Akin Rascon D.O. Radiologis
== END | disposition home or self-care (01) ==
LOC: RADMAMWWP 14:43
PROVIDERS: ATTEND Internal Medicine
DX: R92.331 Mammographic heterogeneous density, right breast (principal); N95.8 Other specified menopausal and perimenopausal disorders; N63.10 Unspecified lump in the right breast, unspecified quadrant; Z78.0 Asymptomatic menopausal state; Z80.3 Family history of malignant neoplasm of breast
CPT/HCPCS: 77080; 77065; 76642; G0279; 77061

== ENCOUNTER → 2024-03-21 | Outpatient (CLI) | payer MEDICARE ==
--- NOTE | 2024-03-22 16:14 | MM ---
Reason for Exam: Screening (asymptomatic). Last mammogram was performed 1 year(s) and 1 month(s) ago. Patient History: Menarche at age 14. First Full-Term at age 29. Left ovary removed at age 60. Right ovary removed at age 60. Hysterectomy at age 60. Postmenopausal. Estrogen for 8 years until age 62. Progesterone for 8 years until age 62. Hormonal Contraceptives for 24 years from age 26 until age 50. Maternal cousin had breast cancer, age 80. Risk Values: Nuris 5 year model risk: 1.8%. NCI Lifetime model risk: 2.6%. Prior Study Comparison: 02/10/2022 Bilateral MG 3D screening mammo w/cad, [facility]. 02/17/2023 Bilateral MG 3D screening mammo w/cad, [facility]. 11/05/2023 Right MG 3D diag mammo w/cad RT, [facility]. Tissue Density: The breasts are heterogeneously dense, which may obscure small masses. Findings: Analyzed By CAD. The pattern is symmetrical. No significant interval change. Benign calcifications are present bilaterally. No suspicious groups of microcalcifications, spiculated or lobular masses, architectural distortion or other secondary signs of malignancy are mammographically apparent. Overall Assessment: Benign, BI-RAD 2 Management: Screening Mammogram of both breasts in 1 year. A negative mammogram report should not preclude additional follow up of suspicious palpable abnormalities. Patient should continue monthly self breast exam. A clinical breast exam by your physician is recommended on an annual basis and results should be correlated with mammographic findings. Note on Nuris scores and lifetime risk: 1. A Nuris score greater than 3% is considered moderate risk. If this is the case, consider specialist referral to assess eligibility for a risk reducing agent. 2. If overall lifetime risk for the development of breast cancer is 20% or higher, the patient may qualify for future screening with alternating mammogram and breast MRI. [facility], , 03/22/2024 4:10 PM. Electronically signed and approved by: Akin Rascon D.O. Radiologis
== END | disposition home or self-care (01) ==
LOC: RADMAMWWP 11:42
PROVIDERS: ATTEND Internal Medicine
DX: Z12.31 Encounter for screening mammogram for malignant neoplasm of breast
CPT/HCPCS: 77063; 77067